=== PATIENT | male | born 1965 | race Caucasian/White ===

== ENCOUNTER 2017-02-26 16:30 | Inpatient (IN) | payer MEDICARE, MEDICAID ==
[~2017-02-26] VITALS: Ht 185.4 cm; Wt 89.1 kg
[2017-02-26 16:40] VITALS: O2SAT 100
[2017-02-26] MEDS ORDERED: DIPHTH/TETANUS/ACEL PERTUSSIS (BOOSTER) 0.5 ML VIAL/PFS IM ONE (16:40)
[2017-02-26 17:08] LABS: I-STAT SODIUM 135 MMOL/L (138-146)
[2017-02-26 17:09] LABS: AUTOMATED NEUTROPHIL # 11.3 TH/MM3 (1.8-7.7); BASOPHIL # 0.1 TH/MM3 (0-0.2); BASOPHIL % 0.6 % (0.0-2.0); EOSINOPHIL % 0.1 % (0.0-4.0); HEMATOCRIT 25.3 % (39.0-51.0); HEMO FLAGS DIFF FINAL; LYMPH % 10.1 % (9.0-44.0); LYMPHOCYTE # 1.3 TH/MM3 (1.0-4.8); MEAN CELL VOLUME 62.7 FL (80.0-100.0); MEAN CORPUSCULAR HGB CONC 31.8 % (32.0-36.0); NEUT % 86.2 % (16.0-70.0); PLATELET COUNT 116 TH/MM3 (150-450); RED BLOOD COUNT 4.04 MIL/MM3 (4.50-5.90); RED CELL DISTRIBUTION WIDTH 16.6 % (11.6-17.2); WHITE BLOOD COUNT 13.1 TH/MM3 (4.0-11.0)
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
[2017-02-26] MEDS ORDERED: LIDOCAINE HCL 1% PF 30 ML VIAL ONE (17:16)
[2017-02-26 17:19] LABS: APTT (PATIENT) 26.1 SEC (24.3-30.1); PROTHROMBIN TIME - PATIENT 11.5 SEC (9.8-11.6)
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
[2017-02-26] MEDS ORDERED: IOHEXOL 350 MG/ML 10 ML VIAL (for RAD DIAG) IVCONTRAST ONE (17:25)
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
--- NOTE | 2017-02-26 17:29 | RADRPT ---
EXAM DATE/TIME: 02/26/2017 16:33 [facility] COMPARISON: No previous studies available for comparison. INDICATIONS : Trauma alert, fall. MEDICAL HISTORY : None. SURGICAL HISTORY : None. ENCOUNTER: Initial ACUITY: 1 day PAIN SCORE: 0/10 LOCATION: Bilateral chest FINDINGS: A single view of the chest demonstrates the lungs to be symmetrically aerated without evidence of mas s, infiltrate or effusion. The cardiomediastinal contours are unremarkable. Osseous structures are intact. CONCLUSION: No acute disease. Mani Starkey MD on February 26, 2017 at 17:27 Board Certified Radiologist. This report was verified electronically.
--- NOTE | 2017-02-26 17:30 | RADRPT ---
EXAM DATE/TIME: 02/26/2017 16:33 [facility] COMPARISON: No previous studies available for comparison. INDICATIONS : Trauma alert, fall. MEDICAL HISTORY : None. SURGICAL HISTORY : None. ENCOUNTER: Initial ACUITY: 1 day PAIN SCORE: 0/10 LOCATION: Bilateral pelvis FINDINGS: A single frontal view of the pelvis demonstrates no evidence of fracture. The bony pelvic ring is in tact. Bony mineralization is normal. The soft tissues are intact. CONCLUSION: Unremarkable examination of the pelvis. Mani Starkey MD on February 26, 2017 at 17:27 Board Certified Radiologist. This report was verified electronically.
[2017-02-26 17:33] LABS: ALCOHOL 222 MG/DL (0-5)
--- NOTE | 2017-02-26 17:33 | RADRPT ---
EXAM DATE/TIME: 02/26/2017 16:49 [facility] COMPARISON: No previous studies available for comparison. INDICATIONS : TRauma, patient fell. RADIATION DOSE: 29.80 CTDIvol (mGy) MEDICAL HISTORY : Non-responsive. SURGICAL HISTORY : Non-responsive. ENCOUNTER: Initial ACUITY: 1 day PAIN SCALE: Non-responsive LOCATION: neck TECHNIQUE: Volumetric scanning of the cervical spine was performed. Multiplanar reconstructions in the sagittal, coronal and oblique axial planes were performed. Using automated exposure control and adjustment o f the mA and/or kV according to patient size, radiation dose was kept as low as reasonably achievable to obtain optimal diagnostic quality images. DICOM format image data is available electronically f or review and comparison. FINDINGS: No acute fracture or spondylolisthesis. There is partial fusion across C4-5 and C6-7. No prevertebral soft tissue swelling. No significant bony canal stenosis. Incidental note made of a 1.5 cm right lob e thyroid nodule. CONCLUSION: 1. No acute fracture. Partial fusion across C4-5 and C6-7. 2. 1.5 cm right thyroid nodule. Mani Starkey MD on February 26, 2017 at 17:28 Board Certified Radiologist. This report was verified electronically.
[2017-02-26 17:34] LABS: CREATINE KINASE 278 U/L (39-308)
--- NOTE | 2017-02-26 17:38 | RADRPT ---
EXAM DATE/TIME: 02/26/2017 16:55 [facility] COMPARISON: No previous studies available for comparison. INDICATIONS : Trauma, patient fell. IV CONTRAST: 70 cc Omnipaque 350 (iohexol) IV ; Cumulative dose for multiple exams. ORAL CONTRAST: No oral contrast ingested. RADIATION DOSE: 12.15 CTDIvol (mGy) ; Combined studies - Thorax/Abdomen/Pelvis MEDICAL HISTORY : Non-responsive. SURGICAL HISTORY : Non-responsive. ENCOUNTER: Initial ACUITY: 1 day PAIN SCALE: Non-responsive LOCATION: abdomen TECHNIQUE: Volumetric scanning of the abdomen and pelvis was performed. Using automated exposure control and ad justment of the mA and/or kV according to patient size, radiation dose was kept as low as reasonably achievable to obtain optimal diagnostic quality images. DICOM format image data is available electro nically for review and comparison. FINDINGS: The liver is diffusely fatty and there is a 2.5 cm enhancing nodule in the right lobe. Spleen, adrena ls, kidneys and pancreas demonstrate no acute findings. There is some mural thickening in the right colon in a pattern suggestive of a mild colitis. Surgical clips present in the right lower quadrant. Wide mouth ventral hernia with evidence for previous repa ir. No pelvic masses or hematoma. Right femoral venous line present with some air in the right external i liac vein. CONCLUSION: 1. 2.5 cm nodule in right hepatic lobe. This could be evaluated with MRI on a nonemergent basis. Ther e is likely prior cross-sectional imaging given the postsurgical changes within the abdomen. 2. Negative for acute traumatic injury within the abdomen and pelvis. 3. Mural thickening in the right colon most characteristic of a mild colitis. 4. Right femoral venous line present with some air in the right external iliac vein. Mani Starkey MD on February 26, 2017 at 17:32 Board Certified Radiologist. This report was verified electronically.
[2017-02-26] MEDS: SODIUM CHLOR 0.9% 1000 ML INJ 1,000 ML IV SCH (17:58)
[2017-02-26] MEDS ORDERED: BISACODYL 10 MG SUPP RECTAL PRN (18:00)
[2017-02-26] MEDS ORDERED: POTASSIUM PHOSPHATE INJ 30 MMOL in SODIUM CHLOR 0.9% 250 ML INJ 250 ML IV PRN (18:00)
[2017-02-26] MEDS ORDERED: LACTULOSE SYRUP 20 GM/30 ML CUP PO PRN (18:00)
[2017-02-26] MEDS ORDERED: SODIUM PHOSPHATE INJ 30 MMOL in SODIUM CHLOR 0.9% 250 ML INJ 240 ML IV PRN (18:00)
[2017-02-26] MEDS ORDERED: MAGNESIUM SULFATE INJ 2 GM in SODIUM CHLORIDE 0.9% INJ 96 ML IV PRN (18:00)
[2017-02-26] MEDS ORDERED: CHLORHEXIDINE GLUCONATE 2 % 1 PACK (2 CLOTHS) TOP PRN (18:00)
[2017-02-26] MEDS ORDERED: POTASSIUM CHLORIDE 25 MEQ EFFERVESCENT TAB PO PRN (18:00)
[2017-02-26] MEDS ORDERED: MAGNESIUM OXIDE 400 MG TAB PO PRN (18:00)
[2017-02-26] MEDS ORDERED: MAGNESIUM SULFATE INJ 4 GM in SODIUM CHLORIDE 0.9% INJ 92 ML IV PRN (18:00)
[2017-02-26] MEDS ORDERED: MISCELLANEOUS NURSING INFORMATION XX SCH (18:00)
[2017-02-26] MEDS ORDERED: POTASSIUM CHLOR 40 MEQ PREMIX 100 ML IV PRN ×2 (18:00)
[2017-02-26] MEDS ORDERED: POTASSIUM CHLOR 20 MEQ PREMIX 100 ML IV PRN (18:00)
[2017-02-26] MEDS ORDERED: POTASSIUM PHOSPHATE MONOBASIC 500 MG TAB PO/TUBE PRN (18:00)
[2017-02-26] MEDS ORDERED: POTASSIUM PHOSPHATE MONOBASIC 500 MG TAB PO PRN (18:00)
--- NOTE | 2017-02-26 18:41 | PD.PROCEDR ---
Central Line Procedure REASON FOR PROCEDURE Central venous access PROCEDURE PERFORMED Central line placement: [right femoral vein] CONSENT Emergency ANESTHESIA Local injection of 1% Lidocaine DESCRIPTION OF THE PROCEDURE The patient was placed in supine, position. The right inguinal area was exposed and cleansed with ChloraPrep, times two. Large sterile drape was used to cover the patient, with the site exposed, under sterile conditions including cap, face mask, sterile gown, and sterile gloves. On single attempt, the introducer needle was inserted with negative pressure in syringe and venous flash was obtained. The guide wire was then advanced without any restriction and the needle was removed. The dilator was used without any complications. Using Seldinger technique the [a cordis ] catheter was advanced over the guide wire to a depth of [ ] centimeters. The guide wire was removed. All ports were aspirated with dark venous blood return and flushed easily with sterile saline. All ports were capped. Antibiotic disc was placed around central line at puncture site. The central line was secured to the skin with two interrupted 2.0 silk sutures. The area was bandaged with sterile see-through central line bandage. RADIOLOGICAL DATA COMPLICATIONS: No apparent complications ESTIMATED BLOOD LOSS: Less than 1 cc. Elise Pollard MD Feb 26, 2017 18:41
--- NOTE | 2017-02-26 18:44 | PD.OP ---
Operative Report Open wound left forehead 5x2cm Postoperative Diagnosis: open wound left forehead 5x2cm Procedure: Closure in layers Anesthesia: 1 %idocaine Surgeon: Elise Pollard [employer](s): none Operation and Findings: Patient's left forehead was sterilely prepped and draped using the usual technique. 1% of lidocaine was given as local anesthesia. Bleeding was controlled with some pressure. Wound was closed in subcutaneous layer with 3-0 Vicryl skin approximated with 4 nylon. Elise Pollard MD Feb 26, 2017 18:44
--- NOTE | 2017-02-26 18:46 | HHI.HP ---
History of Present Illness Primary Care Physician Unknown Admission Diagnosis scalp laceration, anemia Diagnoses: History of Present Illness 51-year-old male on elliquis -patient apparently fell yesterday sustaining a open wound left forehead which has been bleeding today he fell again. According to the EMS that was large amount of blood all over patient's house. IV access could not be obtained blood pressure has been marginal. Patient was brought here as a level I trauma alert. On arrival GCS is 15, initial blood pressure in the 90s, patient is intoxicated with EtOH appears dehydrated- central access was immediately obtained and patient responded well to crystalloid and blood transfusions. Fast performed by ER physician was negative so the patient was brought to CAT scan,neuro intact. He complains of back pain, abdominal pain Review of Systems Constitutional: DENIES: Diaphoretic episodes, Fatigue, Fever, Weight gain, Weight loss, Chills, Dizziness, Change in appetite, Night Sweats Endocrine: DENIES: Heat/cold intolerance, Polydipsia, Polyuria, Polyphagia Eyes: DENIES: Blurred vision, Diplopia, Eye inflammation, Eye pain, Vision loss , Photosensitivity, Double Vision Ears, nose, mouth, throat: DENIES: Tinnitus, Hearing loss, Vertigo, Nasal discharge, Oral lesions, Throat pain, Hoarseness, Ear Pain, Running Nose, Epistaxis, Sinus Pain, Toothache, Odynophagia Respiratory: DENIES: Apneas, Cough, Snoring, Wheezing, Hemoptysis, Sputum production, Shortness of breath Gastrointestinal: COMPLAINS OF: Abdominal pain Genitourinary: DENIES: Sexual dysfunction, Urinary frequency, Urinary incontinence, Urgency, Hematuria, Dysuria, Nocturia, Penile Discharge, Testicular Pain, Testicular Swelling Musculoskeletal: DENIES: Joint pain, Muscle aches, Stiffness, Joint Swelling, Back pain, Neck pain Immunologic/allergic: DENIES: Eczema, Urticaria Neurologic: DENIES: Abnormal gait, Headache, Localized weakness, Paresthesias, Seizures, Speech Problems, Tremor, Poor Balance Psychiatric: DENIES: Anxiety, Confusion, Mood changes, Depression, Hallucinations, Agitation, Suicidal Ideation, Homicidal Ideation, Delusions Past Family Social History Allergies: Coded Allergies: morphine (Verified Allergy, Unknown, 02/26/17) Past Medical History DVT Past Surgical History Multiple abdominal surgeries Reported Medications [facility]m hospital[facility] Family History none Social History etoh+ Physical Exam Vital Signs Vital Signs Date Time Temp Pulse Resp B/P (MAP) Pulse Ox O2 Delivery O2 Flow Rate FiO2 02/26/17 16:40 100 Non-Rebreather 15.00 100 02/26/17 16:40 100 15.00 100 Physical Exam GENERAL: This is a well-nourished, well-developed patient, in moderate distress. SKIN: No rashes, ecchymoses or lesions. Cool and dry. HEAD: open wound 2x5 cm left forehead EYES: Pupils equal round and reactive. orbital swelling left ENT: Nose swelling Airway patent. NECK: Trachea midline. midline tenderness CARDIOVASCULAR: Regular rate and rhythm without murmurs, gallops, or rubs. RESPIRATORY: Clear to auscultation. Breath sounds equal bilaterally. No wheezes , rales, or rhonchi. GASTROINTESTINAL: Abdomen soft, tender no peritonitis,large hernia MUSCULOSKELETAL: Extremities without clubbing, cyanosis, or edema. No joint tenderness, effusion, or edema noted. No calf tenderness. NEUROLOGICAL: Awake and alert. Cranial nerves II through XII intact. Motor and sensory grossly within normal limits. Five out of 5 muscle strength in all muscle groups. Normal speech. Laboratory Laboratory Tests Test 02/26/17 16:45 White Blood Count 13.1 Red Blood Count 4.04 Hemoglobin 8.1 Bedside Hemoglobin 9.5 Hematocrit 25.3 Bedside Hematocrit 28.0 Mean Corpuscular Volume 62.7 Mean Corpuscular Hemoglobin 20.0 Mean Corpuscular Hemoglobin Concent 31.8 Red Cell Distribution Width 16.6 Platelet Count 116 Mean Platelet Volume 7.5 Neutrophils (%) (Auto) 86.2 Lymphocytes (%) (Auto) 10.1 Monocytes (%) (Auto) 3.0 Eosinophils (%) (Auto) 0.1 Basophils (%) (Auto) 0.6 Neutrophils # (Auto) 11.3 Lymphocytes # (Auto) 1.3 Monocytes # (Auto) 0.4 Eosinophils # (Auto) 0.0 Basophils # (Auto) 0.1 CBC Comment DIFF FINAL Differential Comment Prothrombin Time 11.5 Prothromb Time International Ratio 1.0 Activated Partial Thromboplast Time 26.1 Bedside Sodium 135 Bedside Potassium 3.0 Bedside Chloride 97 Bedside Blood Urea Nitrogen LESS THAN 3 Bedside Creatinine 1.1 Bedside Glucose 137 Total Creatine Kinase 278 Ethyl Alcohol Level 222 Result Diagram: 02/26/17 6545 Caprini VTE Risk Assessment Caprini VTE Risk Assessment: Mod/High Risk (score >= 2) VTE Pharm Contraindication: Coagulopathy,INR elevated Caprini Risk Assessment Model Point Value = 1 Point Value = 2 Point Value = 3 Point Value = 5 Age 41-60 Minor surgery BMI > 25 kg/m2 Swollen legs Varicose veins or History of unexplained or recurrent spontaneous Oral contraceptives or hormone replacement Sepsis (< 1 month) Serious lung disease, including pneumonia (< 1 month) Abnormal pulmonary function Acute myocardial infarction Congestive heart failure (< 1 month) History of inflammatory bowel disease Medical patient at bed rest Age 61-74 Arthroscopic surgery Major open surgery (> 45 min) Laparoscopic surgery (> 45 min) Malignancy Confined to bed (> 72 hours) Immobilizing plaster cast Central venous access Age >= 75 History of VTE Family history of VTE Factor V Leiden Prothrombin [id number] Lupus anticoagulant Anticardiolipin antibodies Elevated serum homocysteine Heparin-induced thrombocytopenia Other congenital or acquired thrombophilia Stroke (< 1 month) Elective arthroplasty Hip, pelvis, or leg fracture Acute spinal cord injury (< 1 month) Prophylaxis Regimen Total Risk Factor Score Risk Level Prophylaxis Regimen 0-1 Low Early ambulation 2 Moderate Order ONE of the following: *Sequential Compression Device (SCD) *Heparin 5000 units SQ BID 3-4 Higher Order ONE of the following medications: *Heparin 5000 units SQ TID *Enoxaparin/Lovenox 40 mg SQ daily (WT < 150 kg, CrCl > 30 mL/min) *Enoxaparin/Lovenox 30 mg SQ daily (WT < 150 kg, CrCl > 10-29 mL/min) *Enoxaparin/Lovenox 30 mg SQ BID (WT < 150 kg, CrCl > 30 mL/min) AND/OR *Sequential Compression Device (SCD) 5 or more Highest Order ONE of the following medications: *Heparin 5000 units SQ TID (Preferred with Epidurals) *Enoxaparin/Lovenox 40 mg SQ daily (WT < 150 kg, CrCl > 30 mL/min) *Enoxaparin/Lovenox 30 mg SQ daily (WT < 150 kg, CrCl > 10-29 mL/min) *Enoxaparin/Lovenox 30 mg SQ BID (WT < 150 kg, CrCl > 30 mL/min) AND *Sequential Compression Device (SCD) Assessment and Plan Assessment and Plan Hemorrhagic shock on anticoagulated patient Hypotension Neck sprain Open wound left forehead 2 units of RBC 1 L of crystalloid for hemorrhagic shock ICU admission cbc follow immobilize neck-reexamine in AM Hold elliqumary pain control Elise Pollard MD Feb 26, 2017 18:46
[2017-02-26] MEDS: DOCUSATE SODIUM 50 MG/SENNA 8.6 MG TAB PO SCH (19:58)
[2017-02-26 20:00] VITALS: BP 138/71; PULSE 89; RESP 26; TEMP 98.8; O2SAT 95
[2017-02-26] MEDS: ONDANSETRON HCL 4 MG/2 ML VIAL IV PUSH PRN (20:02)
[2017-02-26] MEDS: HYDROmorphone HCL PF 1 MG/ML VIAL IV PUSH PRN ×2 (20:02→22:53)
[2017-02-26] MEDS: levETIRAcetam 500 MG TAB PO SCH (20:03)
[2017-02-26] MEDS: POTASSIUM CHLOR 20 MEQ PREMIX 100 ML IV PRN ×2 (20:13→22:40)
[2017-02-26] MEDS ORDERED: MAGNESIUM HYDROXIDE SUSP 30 ML CUP PO PRN (21:00)
[2017-02-26] MEDS ORDERED: SENNOSIDES 8.6 MG TAB PO PRN (21:00)
[2017-02-26] MEDS: CHLORHEXIDINE GLUCONATE 2 % 1 PACK (2 CLOTHS) TOP SCH (21:16)
--- NOTE | 2017-02-26 21:29 | EKG ---
Date Performed: 02/26/2017 Time Performed: 20:51:39 PTAGE: 89 years EKG: SINUS TACHYCARDIA NONSPECIFIC T-WAVE ABNORMALITY ABNORMAL RHYTHM ECG NO PREVIOUS TRACING DOCTOR: Boaz Heard Interpretating Date/Time 02/26/2017 21:28:45
[2017-02-26] MEDS: MULTIVITAMIN INJ 10 ML, THIAMINE INJ 100 MG, FOLIC ACID INJ 1 MG in SODIUM CHLORID 0.9%... IV SCH (21:44)
[2017-02-26 22:00] VITALS: PULSE 114
[2017-02-26] MEDS ORDERED: FLUMAZENIL 0.5 MG/5 ML VIAL IV PUSH PRN (22:30)
[2017-02-26] MEDS ORDERED: LORazepam 1 MG TAB PO PRN (22:30)
[2017-02-26] MEDS ORDERED: LORazepam 2 MG/ML VIAL IV PUSH PRN ×3 (22:30)
[2017-02-26] MEDS: LORazepam 2 MG TAB PO PRN (22:53)
[2017-02-26 23:00] VITALS: PULSE 114
[2017-02-27] VITALS (15 sets, daily range): BP systolic 122–140; BP diastolic 63–73; PULSE 100–129; RESP 15–27; TEMP 98–98.8; O2SAT 94–99
[2017-02-27] MEDS: POTASSIUM CHLOR 20 MEQ PREMIX 100 ML IV PRN ×2 (00:39→03:00)
[2017-02-27] MEDS: LORazepam 2 MG TAB PO PRN (01:44)
[2017-02-27] MEDS: HYDROmorphone HCL PF 1 MG/ML VIAL IV PUSH PRN ×2 (01:45→04:54)
[2017-02-27] MEDS: SODIUM CHLOR 0.9% 1000 ML INJ 1,000 ML IV SCH ×2 (02:12→17:48)
[2017-02-27] MEDS: LORazepam 2 MG/ML VIAL IV PUSH PRN ×2 (03:51→04:53)
[2017-02-27 05:43] LABS: BICARBONATE 23.9 MEQ/L (21.0-32.0)
[2017-02-27 06:05] LABS: CALCIUM-PROTEIN CORRECTED 8.1 MG/DL (8.5-10.1)
[2017-02-27 06:10] LABS: AUTOMATED NEUTROPHIL # 8.3 TH/MM3 (1.8-7.7); BASOPHIL % 0.5 % (0.0-2.0); EOSINOPHIL % 0.1 % (0.0-4.0); HEMATOCRIT 24.6 % (39.0-51.0); LYMPH % 10.6 % (9.0-44.0); MEAN CORPUSCULAR HEMOGLOBIN 23.3 PG (27.0-34.0); MEAN CORPUSCULAR HGB CONC 34.2 % (32.0-36.0); MONO % 4.3 % (0.0-8.0); NEUT % 84.5 % (16.0-70.0); PLATELET COUNT 61 TH/MM3 (150-450); RED BLOOD COUNT 3.61 MIL/MM3 (4.50-5.90); RED CELL DISTRIBUTION WIDTH 22.2 % (11.6-17.2); WHITE BLOOD COUNT 9.9 TH/MM3 (4.0-11.0)
[2017-02-27 06:19] LABS: HEMO FLAGS AUTO DIFF
[2017-02-27 08:01] LABS: CORRECTED NUCLEATED RBC 4 /100 WBC (0-0); NEUTROPHIL # MANUAL DIFF 8.6 TH/MM3 (1.8-7.7); PLATELET ESTIMATE SMEAR LOW (NORMAL); PLATELET MORPHOLOGY NORMAL (NORMAL); POLYS (SEG NEUTROPHILS) 87 % (16-70); SCAN/DIFF FINAL DIFF MANUAL; WBC DIFF SAMPLE 100
[2017-02-27] MEDS: MULTIVITAMIN INJ 10 ML, THIAMINE INJ 100 MG, FOLIC ACID INJ 1 MG in SODIUM CHLORID 0.9%... IV SCH (08:27)
[2017-02-27] MEDS: levETIRAcetam 500 MG TAB PO SCH ×2 (08:28→20:44)
[2017-02-27] MEDS: DOCUSATE SODIUM 50 MG/SENNA 8.6 MG TAB PO SCH ×2 (08:28→20:44)
[2017-02-27] MEDS: ACETAMINOPHEN/HYDROcodone 325 MG/10 MG TAB PO PRN ×4 (08:28→21:55)
[2017-02-27] MEDS ORDERED: INFLUENZA VIRUS VACCINE (QUADRIVALENT) 0.5 ML SYR IM ONE (10:00)
[2017-02-27] MEDS ORDERED: PNEUMOCOCCAL POLYVALENT INJ 25 MCG/0.5 ML SYR IM ONE (10:00)
[2017-02-27] MEDS: HYDROmorphone HCL PF 0.5 MG/0.5 ML SYRINGE IV PUSH PRN ×3 (10:53→23:39)
--- NOTE | 2017-02-27 12:13 | PD.HHIRBSE ---
Patient History Record/History Review Reason for Referral: The patient is a 51 year old right handed male status post traumatic injury secondary to a fall and complicated by blood thinning medications and chronic ETOH abuse on 02/27/2017. On admission, he was GCS of 15 with ETOH intoxication. This patient reported consuming 6+ 24 oz cans of beer per day, with longstanding ETOH dependence, reported in and out of sobriety programs. He reported a history of seizure disorder related to his longstanding chronic alcohol dependence (on Keppra and Lamictal) . He is on SSDI for multiple physical issues, , prior arrest for public intoxication vs. stalking. He is referred for baseline neurobehavioral status examination per trauma protocol to assess cognitive, behavioral and emotional aspects of the injury and to provide treatment recommendations. Neuropsych Precautions: Neuropsychological deficits associated with alcohol dependence. Past Surgical/Medical History Past Surgery: Yes (Left foot, right knee, abdominal sx) Major surgery in last 100 days: Unknown Hx Anesthesia Reactions: No Hx Orthopedic Surgery: Yes (right knee (2013), left foot (2013)) Hx Cardiac Surgery: No Hx Chest Surgery: No Hx Abdominal Surgery: Yes (Abdominal surgery 2014) Hx Genitourinary Surgery: No Hx Endocrine Surgery: No Hx Eye Surgery: No Hx Ear Surgery: No Hx Oral Surgery: No History of Transplant: No Hx of Neuro Prob: Yes Hx Seizures: Yes Cephalgia (Headaches): Yes Hx Migraines: Yes Hx Head Injury: Yes Hx Falls: Yes Hx Cerebrovascular Accident: No Hx Dizziness: No Hx Numbness: No Hx of Musculoskeletal Pro: No Hx of Cardiovascular Prob: Yes Hypertension (High Blood Press: No Hx Clotting Problems: Yes Venous Thromboembolism Present: No Hx Chest Pain: No Hx Lightheadedness: No Hx Congestive Heart Failure: No Syncope (Fainting): No Hx of Respiratory Problem: No Hx of GI Problems: Yes (Chron's disease) Hx Heartburn: Yes Hx Gastroesophageal Reflux: Yes Hx Hiatal Hernia: Yes Hx Ulcer: No Hx Liver Disease: Yes (Fatty liver) Hx Gallbladder Disease: Yes (Choleycystectomy) Hx Inflammatory Bowel Disease: Yes (Chron's) Hx of Problems: No Hx Genital Problems: Yes (erctile dysfunction) Hx of Immuno Disor: No Hx of Endocrine Problems: No Hx of Eye Probl: No Hx of Hearing or Ear Problems: No Hx Dental Problems: No Hx Psychiatric Problems: Yes Hx Anxiety: Yes Hx Blood Dyscrasias: No Hx of MDRO: No Hx of MRSA: No Hx of VRE: No Hx of CDIFF: No Hx of Tuberculosis: No Hx Chicken Pox: Yes (at 18 y/o) If No, Have You Been Exposed W: No Hx Measles: No Hx of Body/Medical Devices: No Blood Transfusion History Will receive Blood /Blood prod: Yes Hx Blood Transfusions: Yes Hx Blood Transfusion Reaction: No Medication Active Medications Acetaminophen/ Hydrocodone Bitart ([place] 5-325 Mg) 1 tab Q4H PRN PO; Start at 07:45 Acetaminophen/ Hydrocodone Bitart ([place] 10-325 Mg) 1 tab Q4H PRN PO Last administered on 02/27/17t 08:28; Admin Dose 1 TAB; Start 02/27/17 at 07:45 Bisacodyl (Dulcolax Supp) 10 mg DAILY PRN RECTAL; Start 02/26/17 at 18:00 Chlorhexidine Gluconate (Chlorhexidine 2% Cloth) 3 pack UNSCH PRN TOP; Start 02/26/17 at 18:00 Chlorhexidine Gluconate (Chlorhexidine 2% Cloth) 3 pack Taper DAILY@04 TOP; Start 02/27/17 at 04:00; Stop 02/23/18 at 03:59 Diphtheria/ Tetanus/Acell Pertussis (Boostrix Inj) 0.5 ml STK-MED ONCE IM; Start 02/26/17 at 16:40; Stop 02/26/17 at 16:41; Status DC Fentanyl Citrate (fentaNYL INJ) 100 mcg STK-MED ONCE .ROUTE; Start 02/26/17 at 16:45; Stop 02/26/17 at 16:46; Status DC Fentanyl Citrate (fentaNYL INJ) 100 mcg STK-MED ONCE .ROUTE; Start 02/26/17 at 16:51; Stop 02/26/17 at 16:52; Status DC Fentanyl Citrate (fentaNYL INJ) 100 mcg STK-MED ONCE .ROUTE; Start 02/26/17 at 17:34; Stop 02/26/17 at 17:35; Status DC Fentanyl Citrate (fentaNYL INJ) 100 mcg STK-MED ONCE .ROUTE; Start 02/26/17 at 18:01; Stop 02/26/17 at 18:02; Status DC Flumazenil (Romazicon Inj) 0.2 mg Q1M PRN IV PUSH; Start 02/26/17 at 22:30 Haloperidol Lactate (Haldol Inj) 5 mg Q6HR IV PUSH; Start 02/27/17 at 12:00 Hydromorphone HCl (Dilaudid Pf Inj) 0.5 mg Q3HR PRN IV PUSH Last administered on 02/27/17 10:53; Admin Dose 0.5 MG; Start 02/26/17 at 18:00 Hydromorphone HCl (Dilaudid Pf Inj) 1 mg Q3HR PRN IV PUSH Last administered on 02/27/17 04:54; Admin Dose 1 MG; Start 02/26/17 at 18:00; Stop 02/27/17 at 07:38; Status DC Influenza Virus Vaccine (Flu (Quadrivalent) Vaccine Inj) 0.5 ml ONCE ONCE IM Last administered on 02/27/17 10:52; Admin Dose 0.5 ML; Start 02/27/17 at 10: 00; Stop 02/27/17 at 10:01; Status DC Iohexol (Omnipaque 350 Inj) 70 ml STK-MED ONCE IVCONTRAST Last administered on 02/26/17 17:25; Admin Dose 70 ML; Start 02/26/17 at 17:25; Stop 02/26/17 at 17:26; Status DC Lactulose (Lactulose Liq) 30 ml DAILY PRN PO; Start 02/26/17 at 18:00 Levetriacetam (Keppra) 1,000 mg Q12HR PO Last administered on 02/27/17 08:28; Admin Dose 1,000 MG; Start 02/26/17 at 21:00 Lidocaine HCl (Xylocaine-Mpf 1% Inj) 30 ml STK-MED ONCE .ROUTE; Start 02/26/17 at 17:16; Stop 02/26/17 at 17:17; Status DC Lorazepam (Ativan Inj) 1 mg Q4H PRN IV PUSH; Start 02/26/17 at 22:30; Stop at 07:34; Status DC Lorazepam (Ativan Inj) 2 mg Q15M PRN IV PUSH; Start 02/26/17 at 22:30; Stop 02/27/17 at 07:34; Status DC Lorazepam (Ativan Inj) 2 mg Q1H PRN IV PUSH Last administered on 02/27/17 04: 53; Admin Dose 2 MG; Start 02/26/17 at 22:30; Stop 02/27/17 at 07:34; Status DC Lorazepam (Ativan Inj) 2 mg Q2H PRN IV PUSH; Start 02/26/17 at 22:30; Stop at 07:34; Status DC Lorazepam (Ativan) 1 mg Q4H PRN PO; Start 02/26/17 at 22:30; Stop 02/27/17 at 07:34; Status DC Lorazepam (Ativan) 2 mg Q2H PRN PO Last administered on 02/27/17 01:44; Admin Dose 2 MG; Start 02/26/17 at 22:30; Stop 02/27/17 at 07:34; Status DC Magnesium Hydroxide (Milk Of Magnesia Liq) 30 ml Q12HR PRN PO; Start 02/26/17 at 21:00 Magnesium Oxide (Mag-Ox) 800 mg UNSCH PRN PO; Start 02/26/17 at 18:00 Magnesium Sulfate 2 gm/Sodium Chloride 100 ml @ 50 mls/hr UNSCH PRN IV; Start 02/26/17 at 18:00 Magnesium Sulfate 4 gm/Sodium Chloride 100 ml @ 50 mls/hr UNSCH PRN IV; Start 02/26/17 at 18:00 Miscellaneous Information 1 [id number] XX; Start 02/26/17 at 18:00 Multivitamins 10 ml/Thiamine HCl 100 mg/Folic Acid 1 mg/Sodium Chloride 511.2 ml @ 125 mls/hr DAILY IV Last administered on 02/27/17 08:27; Admin Dose 125 MLS/HR; Start 02/26/17 at 20:00; Stop 02/28/17 at 13:06 Ondansetron HCl (Zofran Inj) 4 mg Q6H PRN IV PUSH Last administered on 20:02; Admin Dose 4 MG; Start 02/26/17 at 18:00 Pneumococcal Polyvalent Vaccine (Pneumovax-23 Inj) 25 mcg ONCE ONCE IM Last administered on 02/27/17 10:51; Admin Dose 25 MCG; Start 02/27/17 at 10:00; Stop 02/27/17 at 10:01; Status DC Potassium Phosphate (K-Phos) 2,000 mg Q4H PRN PO; Start 02/26/17 at 18:00 Potassium Phosphate (K-Phos) 2,000 mg UNSCH PRN PO/TUBE; Start 02/26/17 at 18: 00 Potassium Phosphate 30 mmol/ Sodium Chloride 260 ml @ 42 mls/hr UNSCH PRN IV; Start 02/26/17 at 18:00 Potassium Bicarb/ Potassium Chloride (K-Lyte Cl Eff) 50 meq UNSCH PRN PO; Start 02/26/17 at 18:00 Potassium Chloride 100 ml @ 25 mls/hr UNSCH PRN IV; Start 02/26/17 at 18:00 Potassium Chloride 100 ml @ 50 mls/hr Q2H PRN IV Last administered on 03:00; Admin Dose 50 MLS/HR; Start 02/26/17 at 18:00 Potassium Chloride 100 ml @ 50 mls/hr Q2H PRN IV; Start 02/26/17 at 18:00 Potassium Chloride 100 ml @ 50 mls/hr Q2H PRN IV; Start 02/26/17 at 18:00 Quetiapine Fumarate (SEROquel) 100 mg Q8HR PO; Start 02/27/17 at 14:00 Senna/Docusate Sodium ([place]-Colace) 1 tab BID PO Last administered on 08:28; Admin Dose 1 TAB; Start 02/26/17 at 21:00 Sennosides (Senokot) 17.2 mg Q12HR PRN PO; Start 02/26/17 at 21:00 Sodium Chloride 1,000 ml @ 84 mls/hr [id number] IV Last administered on 02:12; Admin Dose 84 MLS/HR; Start 02/26/17 at 17:58 Sodium Phosphate 30 mmol/Sodium Chloride 250 ml @ 42 mls/hr UNSCH PRN IV; Start 02/26/17 at 18:00 Mental Status Assessment Orientation: oriented to Self, oriented to Place, oriented to Time, oriented to Situation Mental Status: WFL: Language/Interactions, Learning/Memory, Problem-Solving, Impaired: Thought processing, Attention Observation The patient is alert and oriented to person, place, time and circumstances surrounding the reason for hospitalization. In terms of attention skills, the patient was able to remain on task and remember basic instructions, but he had problems with complex instructions. In terms of memory functioning, the patient was generally able to demonstrate adequate carry over after a brief period of time. The patient initiated spontaneous conversation. Speech was characterized by adequate prosody, grammar, articulation, volume and rate. Basic naming skills were intact. Language repetition skills were intact. The patients comprehensions for basic one- and two-stage commands were intact. Basic verbal abstraction and problem-solving skills were marginal. The patient appears to posses diminished insight and awareness into their situation and within the limits of this brief evaluation, questionable yet longstanding problems with judgment. Impression Alcohol intoxication affecting baseline neurobehavioral assessment. Adjustment/Coping Assessment Adjustment/Coping: Moderate: Awareness, Insight Observation The patients thought content was free from suicidal, homicidal or paranoid ideation, and the patients thought processes were somewhat tangential. The patients mood was anxious, and the affect was worrisome. LTG Status: Deferred STG Status: Deferred Team Members: Neuropsychologist Behavior Assessment Agitation: Mild Treatment Engagement: Average Observation Behaviorally, the patient demonstrated no signs of agitation, impulsivity or disinhibition. He was agitated/restless earlier, but not at the present time. There was no remarkable evidence of a formal thought disorder or psychosis. LTG - Status: Deferred STG Status: Deferred Team Members: Neuropsychologist Diagnosis/Discharge Plan Impression This is a 51 year old man with longstanding history of alcohol dependence and current alcohol intoxication who presents to the [facility] with multiple fall exacerbated by blood thinning medications, who has been agitated/restless since his admission. 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 Diagnosis: (1) Alcohol dependence in controlled environment (2) Alcohol intoxication (3) Dependent personality disorder Status: Chronic Maximizing acute care outcome It is recommended that the patient be monitored for emergent behavioral impulsivity as the medical condition evolves. His ongoing alcohol dependence will be a challenge and will need pharmacological management. At this point in the recovery process, the patient does have basic cognitive capacity as the patient is able to understand a situation and its likely consequences, and he is able to manipulate information rationally albeit marginally rationally. Cognitive capacity will be assessed throughout the recovery process. Discharge Planning Anticipated Problems The greatest anticipated problem will be his ongoing alcohol dependence and his dependent personality disorder making it difficult to determine an accurate history. Ongoing areas of concern will include behavioral impulsivity, lack of insight and judgment, which is expected to improve with time and treatment. Presently, the patient is alert, oriented and following commands, although his cognition is presently attenuated by resolving alcohol intoxication. Treatment Plan Concerning his agitation/restlessness and resolving alcohol intoxication, it is suggested to consider Seroquel 100 q8h and Haldol PRN, with decision to mollify withdrawal symptoms with beer tid. This clinician will continue to follow with you throughout the course of this patients acute care treatment, and I will be available to meet with the patients family/support system to facilitate their understanding and the ongoing care of their family member. The goals of neuropsychological intervention shall be both educational and supportive to the family/support system as is deemed clinically appropriate. Discharge Needs To be determined. Thank you Thank you for the opportunity to assist in this patients care. Jose Luis Jane, Ph.D., ABPP Board Certified in Clinical Neuropsychology [place] [employer] [place] Licensed Psychologist #[id number] Jose Luis Jane PhD Feb 27, 2017 12:13
[2017-02-27] MEDS: HALOPERIDOL LACTATE 5 MG/ML AMP IV PUSH SCH ×3 (12:25→23:13)
--- NOTE | 2017-02-27 13:58 | HHI.CCPN ---
Subjective Brief History 51-year-old male fell at home drunk, sustained forehead laceration while on Coumadin for chronic DVT then continue drinking and taking Coumadin until he fell again day or 2 later Patient brought into our institution dehydrated, hypovolemic with significant blood loss and laceration of the forehead heavily intoxicated Patient had forehead laceration repaired in the anticoagulation attended Is now in the ICU awake alert somewhat disoriented trying to get up and run away 24 Hour Review/Hospital Course 02/27/17 Trauma to the head with large laceration of the forehead which is not bleeding Patient has a nasal bone fracture which at this point does not require any urgent management and patient should follow up with the oral maxillofacial surgeon or a plastic surgeon on outpatient basis Neck is supple patient has not tenderness C-collar can be removed Grossly neurologically patient is fully intact moves all 4 extremities able to stand up Bilateral breath sounds Hemodynamically stable Abdomen is soft with active bowel sounds No active bleeding Objective Vital Signs Date Time Temp Pulse Resp B/P (MAP) Pulse Ox O2 Delivery O2 Flow Rate FiO2 02/27/17 06:00 129 02/27/17 04:00 98.8 27 140/73 (95) 95 02/26/17 19:00 Room Air 95 02/26/17 16:40 15.00 Intake and Output 02/27/17 02/27/17 02/28/17 08:00 16:00 00:00 Intake Total 2880 ml Output Total 2000 ml Balance 880 ml Result Diagram: 02/27/17 0459 02/27/17 0459 Imaging Last 24 hours Impressions Pelvis X-Ray 02/26/[id number] Signed Impressions: Service Date/Time: Sunday, February 26, 2017 16:33 - CONCLUSION: Unremarkable examination of the pelvis. Mani Starkey MD Maxillofacial CT 02/26/[id number] Signed Impressions: Service Date/Time: Sunday, February 26, 2017 16:49 - CONCLUSION: 1. Minimally displaced nasal bone fracture. Left periorbital soft tissue swelling. Globes intact. Mani Starkey MD Head CT [id number]/26/171638 Signed Impressions: Service Date/Time: Sunday, February 26, 2017 16:49 - CONCLUSION: 1. No acute intracranial abnormality. Left frontal scalp hematoma and laceration. Mani Starkey MD Chest X-Ray 02/26/171638 Signed Impressions: Service Date/Time: Sunday, February 26, 2017 16:33 - CONCLUSION: No acute disease. Mani Starkey MD Chest CT 02/26/17 1639 Signed Impressions: Service Date/Time: Sunday, February 26, 2017 16:55 - CONCLUSION: 1. Negative for acute traumatic injury within the thorax. Subacute healing right anterior sixth rib fracture. Mani Starkey MD Cervical Spine CT 02/26/17 1639 Signed Impressions: Service Date/Time: Sunday, February 26, 2017 16:49 - CONCLUSION: 1. No acute fracture. Partial fusion across C4-5 and C6-7. 2. 1.5 cm right thyroid nodule. Mani Starkey MD Abdomen/Pelvis CT 02/26/17 1639 Signed Impressions: Service Date/Time: Sunday, February 26, 2017 16:55 - CONCLUSION: 1. 2.5 cm nodule in right hepatic lobe. This could be evaluated with MRI on a nonemergent basis. There is likely prior cross-sectional imaging given the postsurgical changes within the abdomen. 2. Negative for acute traumatic injury within the abdomen and pelvis. 3. Mural thickening in the right colon most characteristic of a mild colitis. 4. Right femoral venous line present with some air in the right external iliac vein. Mani Starkey MD Exam [employer] Awake alert but disoriented Neurologically patient is fully intact C-collar will be removed Patient will go in delirium tremens imminently and has been placed on some beer and modified EtOH protocol Evaluated by Dr. Jane the neuropsychologist and his expert opinion is greatly appreciated Hemodynamic/Cardiac Hemodynamically stable Pulmonary/Respiratory Bilateral good breath sounds preserved pulmonary function and I do not know if patient might have aspirated but its high likelihood Hemoglobin stable with thrombocytopenia likely due to liver cirrhosis and chronic alcohol abuse Will monitor platelets carefully any the decreased below 20,000 and patient may need platelet transfusion otherwise as long as is not bleeding I would certainly avoid this Abdomen/GI Nutrition Abdomen is soft patient able to take by mouth diet when fully awake Renal/I&O Preserved renal function Assessment and Plan Attestation Critical care time 35 minutes En Rodriguez MD Feb 27, 2017 13:58
[2017-02-27] MEDS: QUEtiapine FUMARATE 100 MG TAB PO SCH ×2 (16:20→21:48)
[2017-02-27] MEDS: ONDANSETRON HCL 4 MG/2 ML VIAL IV PUSH PRN (23:50)
[2017-02-28] VITALS (12 sets, daily range): BP systolic 105–137; BP diastolic 63–79; PULSE 110–140; RESP 13–27; TEMP 98.1–98.8; O2SAT 95–98
[2017-02-28] MEDS: ACETAMINOPHEN/HYDROcodone 325 MG/10 MG TAB PO PRN ×5 (01:53→23:39)
[2017-02-28] MEDS: CHLORHEXIDINE GLUCONATE 2 % 1 PACK (2 CLOTHS) TOP SCH (03:12)
[2017-02-28] MEDS: HYDROmorphone HCL PF 0.5 MG/0.5 ML SYRINGE IV PUSH PRN ×5 (04:02→22:25)
[2017-02-28] MEDS: QUEtiapine FUMARATE 100 MG TAB PO SCH ×3 (05:17→21:28)
[2017-02-28] MEDS: HALOPERIDOL LACTATE 5 MG/ML AMP IV PUSH SCH (05:17)
[2017-02-28] MEDS: SODIUM CHLOR 0.9% 1000 ML INJ 1,000 ML IV SCH ×2 (05:43→17:34)
--- NOTE | 2017-02-28 08:18 | HHI.PR ---
Neuropsych Emotional Emotional: Moderate: Irritable/Angry/Frustrate Behavior Behavior: Moderate: Impulsive/Agitated Cognitive Cognitive: Unable to Asses: Cognitive, Attention/Concentration, Confused/ Orientation, Insight/Awareness, Judgement/Problem-Solving, Memory Psychosocial Psychosocial: Severe: Psychosocial, Family/Other Adjustment, Realistic Expectation, Unable to Asses: Self-Esteem/Confidence Progress Notes/Response to Tx Contents of Sessions: Adjustment Premorbid psychological status Premorbid Cognitive, Emotional and Behavioral Status: Unstable. The patient has high school years of education but on SSDI for some physical reason. The patient has prior psychiatric difficulties, as described above. Substance abuse history is significant and directly contributed to his present situation. Behavioral Reactions of Patient and Family/Support System: Unstable. The patients family is not present. Emotional/Behavioral Status of Patient and Family/Support System: Unstable. Pertinent issues, if appropriate to this patients clinical care, are described in detail above. Maximizing acute care outcome It is recommended that the patient be monitored for emergent behavioral impulsivity as the medical condition evolves. His ongoing alcohol dependence will be a challenge and will need pharmacological management. At this point in the recovery process, the patient does not have basic cognitive capacity as the patient is not able to understand a situation and its likely consequences, and he is not able to manipulate information rationally albeit marginally rationally. Issues concerning capacity have changed given his current neurobehavioral situation. Cognitive capacity will be assessed throughout the recovery process. Anticipated Problems The greatest anticipated problem will be his ongoing alcohol dependence and his dependent personality disorder making it difficult to determine an accurate history. Ongoing areas of concern will include behavioral impulsivity, lack of insight and judgment, which is expected to improve with time and treatment. Presently, the patient is alert, oriented and following commands, although his cognition is presently attenuated by resolving alcohol intoxication. Treatment Plan This clinician will continue to follow with you throughout the course of this patients acute care treatment, and I will be available to meet with the patient s family/support system to facilitate their understanding and the ongoing care of their family member. The goals of neuropsychological intervention shall be both educational and supportive to the family/support system as is deemed clinically appropriate. Disinhibition Score: 14 Aggression Score: 14 Lability Score: 14 Agitated Behavior Total Score: 21 Impression This is a 51 year old man with longstanding history of alcohol dependence and current alcohol intoxication who presents to the [facility] with multiple fall exacerbated by blood thinning medications, who has been agitated/restless since his admission. 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 Diagnosis: (1) Alcohol dependence in controlled environment (2) Alcohol intoxication (3) Dependent personality disorder Status: Chronic Progress Note Narrative Ongoing follow-up of patient seen during daily trauma rounds. This is day 2 post injury. The patient continues to exhibit agitation/restlessness related to his alcohol withdrawal status, and he remains on Seroquel 100 TID and IM PRN Haldol (which he received at 1225, 1731, 2313, and 0517). Consideration to increasing Seroquel to 150 TID will be entertained, which was performed. Also Haldol was d/c'ed due to minimal clinical response, and changed to Geodon 10 PRN. This patient was again counseled to listen to the nurses, and follow their directions, and he agreed to comply. Again, the greatest challenge with this patient during the course of his care will be psychological in nature, which includes his alcohol dependence and withdrawal issues. I will continue to follow. Jose Luis Jane PhD Feb 28, 2017 8:18 am
[2017-02-28] MEDS: MULTIVITAMIN INJ 10 ML, THIAMINE INJ 100 MG, FOLIC ACID INJ 1 MG in SODIUM CHLORID 0.9%... IV SCH (08:29)
[2017-02-28] MEDS: DOCUSATE SODIUM 50 MG/SENNA 8.6 MG TAB PO SCH ×2 (08:58→21:00)
[2017-02-28] MEDS: levETIRAcetam 500 MG TAB PO SCH ×2 (08:58→21:27)
[2017-02-28] MEDS ORDERED: ENOXAPARIN SODIUM 40 MG/0.4 ML SYRINGE SQ SCH (11:00)
[2017-02-28] MEDS ORDERED: PILL SPLITTER OTHER PRN (11:00)
[2017-02-28] MEDS: chlordiazePOXIDE 25 MG CAP PO SCH ×2 (14:17→17:33)
--- NOTE | 2017-02-28 19:27 | HHI.CCPN ---
Subjective Brief History 51-year-old male fell at home drunk, sustained forehead laceration while on Coumadin for chronic DVT then continue drinking and taking Coumadin until he fell again day or 2 later Patient brought into our institution dehydrated, hypovolemic with significant blood loss and laceration of the forehead heavily intoxicated Patient had forehead laceration repaired in the anticoagulation attended Is now in the ICU awake alert somewhat disoriented trying to get up and run away 24 Hour Review/Hospital Course 02/27/17 Trauma to the head with large laceration of the forehead which is not bleeding Patient has a nasal bone fracture which at this point does not require any urgent management and patient should follow up with the oral maxillofacial surgeon or a plastic surgeon on outpatient basis Neck is supple patient has not tenderness C-collar can be removed Grossly neurologically patient is fully intact moves all 4 extremities able to stand up Bilateral breath sounds Hemodynamically stable Abdomen is soft with active bowel sounds No active bleeding 02/28/17 Patient is hemodynamically stable Neurologically intact awake alert and oriented No neurologic deficit Abdomen soft diet well tolerated Patient awaiting bed on the floor for the last 24 hours and does not require ICU care Objective Vital Signs Date Time Temp Pulse Resp B/P (MAP) Pulse Ox O2 Delivery O2 Flow Rate FiO2 02/28/17 16:27 98 02/28/17 16:00 134 02/28/17 16:00 98.2 24 137/79 (98) 02/28/17 07:00 Room Air 02/27/17 19:00 99 02/26/17 16:40 15.00 Intake and Output 02/28/17 02/28/17 03/01/17 08:00 16:00 00:00 Intake Total 1740 ml Output Total 1600 ml Balance 140 ml Result Diagram: 02/27/17 0459 02/27/17 0459 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
[2017-03-01] VITALS (7 sets, daily range): BP systolic 83–135; BP diastolic 54–67; PULSE 110–138; RESP 12–21; TEMP 97.6–98.6; O2SAT 96–100
[2017-03-01] MEDS: HYDROmorphone HCL PF 0.5 MG/0.5 ML SYRINGE IV PUSH PRN ×5 (01:23→17:00)
[2017-03-01] MEDS: CHLORHEXIDINE GLUCONATE 2 % 1 PACK (2 CLOTHS) TOP SCH (02:28)
[2017-03-01] MEDS: ACETAMINOPHEN/HYDROcodone 325 MG/10 MG TAB PO PRN ×4 (04:13→21:27)
[2017-03-01] MEDS: QUEtiapine FUMARATE 100 MG TAB PO SCH ×3 (05:19→21:26)
[2017-03-01] MEDS: DOCUSATE SODIUM 50 MG/SENNA 8.6 MG TAB PO SCH ×2 (09:00→21:00)
[2017-03-01] MEDS: levETIRAcetam 500 MG TAB PO SCH ×2 (09:11→21:27)
[2017-03-01] MEDS: chlordiazePOXIDE 25 MG CAP PO SCH ×3 (09:12→17:00)
[2017-03-01] MEDS: ZIPRASIDONE MESYLATE 20 MG VIAL IM PRN (14:43)
--- NOTE | 2017-03-01 15:54 | HHI.CCPN ---
Subjective Brief History 51-year-old male fell at home drunk, sustained forehead laceration while on Coumadin for chronic DVT then continue drinking and taking Coumadin until he fell again day or 2 later Patient brought into our institution dehydrated, hypovolemic with significant blood loss and laceration of the forehead heavily intoxicated Patient had forehead laceration repaired in the anticoagulation attended Is now in the ICU awake alert somewhat disoriented trying to get up and run away 24 Hour Review/Hospital Course 02/27/17 Trauma to the head with large laceration of the forehead which is not bleeding Patient has a nasal bone fracture which at this point does not require any urgent management and patient should follow up with the oral maxillofacial surgeon or a plastic surgeon on outpatient basis Neck is supple patient has not tenderness C-collar can be removed Grossly neurologically patient is fully intact moves all 4 extremities able to stand up Bilateral breath sounds Hemodynamically stable Abdomen is soft with active bowel sounds No active bleeding 02/28/17 Patient is hemodynamically stable Neurologically intact awake alert and oriented No neurologic deficit Abdomen soft diet well tolerated Patient awaiting bed on the floor for the last 24 hours and does not require ICU care 03/01/17 Patient confused and disoriented intermittently Developing delirium tremens and requiring Librium /Geodon/Seroquel Neurologically however patient is fully intact and [place] Coma Scale of 15 No motoric or sensory deficit with normal deep tendon reflexes and no pathologic reflexes Hemodynamically stable Bilateral breath sounds with good pulmonary expansion Abdomen soft active bowel sounds Tolerates diet well and ambulates Because of agitation patient waiting floor bed close to the nursing station for sitters are not provided Objective Vital Signs Date Time Temp Pulse Resp B/P (MAP) Pulse Ox O2 Delivery O2 Flow Rate FiO2 03/01/17 12:46 15 03/01/17 12:00 120 03/01/17 12:00 98.4 120/60 (80) 97 03/01/17 07:00 Room Air 02/27/17 19:00 99 02/26/17 16:40 15.00 Intake and Output 03/01/17 03/01/17 03/02/17 08:00 16:00 00:00 Intake Total 960 ml Output Total 300 ml Balance 660 ml Result Diagram: 02/27/17 0459 02/27/17 0459 Disinhibition Score: 26.18 Aggression Score: 17.50 Lability Score: 18.62 Agitated Behavior Total Score: 22 En Rodriguez MD Mar 01, 2017 15:54
[2017-03-02] VITALS (11 sets, daily range): BP systolic 110–130; BP diastolic 49–70; PULSE 91–120; RESP 15–19; TEMP 96–98.4; O2SAT 95–100
[2017-03-02] MEDS: CHLORHEXIDINE GLUCONATE 2 % 1 PACK (2 CLOTHS) TOP SCH (03:45)
[2017-03-02] MEDS: ACETAMINOPHEN/HYDROcodone 325 MG/10 MG TAB PO PRN ×3 (04:00→17:29)
[2017-03-02] MEDS: ZIPRASIDONE MESYLATE 20 MG VIAL IM PRN (04:00)
[2017-03-02 05:25] LABS: AUTOMATED NEUTROPHIL # 2.8 TH/MM3 (1.8-7.7); BASOPHIL % 0.6 % (0.0-2.0); EOSINOPHIL # 0.1 TH/MM3 (0-0.4); EOSINOPHIL % 1.4 % (0.0-4.0); LYMPH % 13.8 % (9.0-44.0); LYMPHOCYTE # 0.5 TH/MM3 (1.0-4.8); MEAN CELL VOLUME 70.5 FL (80.0-100.0); MEAN CORPUSCULAR HEMOGLOBIN 23.1 PG (27.0-34.0); MEAN CORPUSCULAR HGB CONC 32.7 % (32.0-36.0); MONO % 6.6 % (0.0-8.0); NEUT % 77.6 % (16.0-70.0); PLATELET COUNT 60 TH/MM3 (150-450); RED BLOOD COUNT 2.92 MIL/MM3 (4.50-5.90); RED CELL DISTRIBUTION WIDTH 23.4 % (11.6-17.2); WHITE BLOOD COUNT 3.6 TH/MM3 (4.0-11.0)
[2017-03-02 05:33] LABS: HEMO FLAGS AUTO DIFF
[2017-03-02 05:44] LABS: HEMATOCRIT 20.5 % (39.0-51.0)
[2017-03-02 06:04] LABS: BICARBONATE 22.4 MEQ/L (21.0-32.0)
[2017-03-02 06:08] LABS: POTASSIUM 2.8 MEQ/L (3.5-5.1)
[2017-03-02 06:19] LABS: CALCIUM-PROTEIN CORRECTED 8.7 MG/DL (8.5-10.1)
[2017-03-02] MEDS: QUEtiapine FUMARATE 100 MG TAB PO SCH ×3 (06:24→20:22)
[2017-03-02 07:35] LABS: POLYCHROMASIA 2.7 % (0.0-1.9); TARGET CELLS 1+ (NORMAL)
[2017-03-02 07:36] LABS: ACANTHOCYTES OCC (NORMAL); OVALOCYTES 1+ (NORMAL)
[2017-03-02 07:37] LABS: PLATELET ESTIMATE SMEAR LOW (NORMAL); PLATELET MORPHOLOGY NORMAL (NORMAL); SCAN/DIFF AUTO DIFF CONFIRMED
[2017-03-02] MEDS ORDERED: LORazepam 2 MG/ML VIAL IV PUSH ONE (07:45)
[2017-03-02] MEDS ORDERED: POTASSIUM CHLORIDE 25 MEQ EFFERVESCENT TAB PO ONE (08:00)
[2017-03-02] MEDS ORDERED: SODIUM CHLOR 0.9% 250 ML INJ 250 ML IV ONE (08:00)
[2017-03-02] MEDS: chlordiazePOXIDE 25 MG CAP PO SCH ×3 (08:11→17:29)
[2017-03-02] MEDS: levETIRAcetam 500 MG TAB PO SCH ×2 (08:11→20:20)
[2017-03-02] MEDS: DOCUSATE SODIUM 50 MG/SENNA 8.6 MG TAB PO SCH ×2 (08:12→20:20)
[2017-03-02] MEDS: POTASSIUM CHLOR 20 MEQ PREMIX 100 ML IV SCH ×2 (08:12→10:55)
--- NOTE | 2017-03-02 08:28 | HHI.PR ---
Neuropsych Behavior Behavior: Moderate: Impulsive/Agitated Cognitive Cognitive: Mild: Cognitive, Attention/Concentration, Confused/Orientation, Insight/Awareness, Judgement/Problem-Solving, Memory Psychosocial Psychosocial: Severe: Psychosocial, Family/Other Adjustment, Realistic Expectation, Unable to Asses: Self-Esteem/Confidence Progress Notes/Response to Tx Contents of Sessions: Adjustment Time with Patient: 30 minutes Premorbid psychological status Premorbid Cognitive, Emotional and Behavioral Status: Unstable. The patient has high school years of education but on SSDI for some physical reason. The patient has prior psychiatric difficulties, as described above. Substance abuse history is significant and directly contributed to his present situation. Behavioral Reactions of Patient and Family/Support System: Unstable. The patients family is not present. Emotional/Behavioral Status of Patient and Family/Support System: Unstable. Pertinent issues, if appropriate to this patients clinical care, are described in detail above. Maximizing acute care outcome It is recommended that the patient be monitored for emergent behavioral impulsivity as the medical condition evolves. His ongoing alcohol dependence will be a challenge and will need pharmacological management. At this point in the recovery process, the patient does not have basic cognitive capacity as the patient is not able to understand a situation and its likely consequences, and he is not able to manipulate information rationally albeit marginally rationally. Issues concerning capacity have changed given his current neurobehavioral situation. Cognitive capacity will be assessed throughout the recovery process. Anticipated Problems The greatest anticipated problem will be his ongoing alcohol dependence and his dependent personality disorder making it difficult to determine an accurate history. Ongoing areas of concern will include behavioral impulsivity, lack of insight and judgment, which is expected to improve with time and treatment. Presently, the patient is alert, oriented and following commands, although his cognition is presently attenuated by resolving alcohol intoxication. Treatment Plan This clinician will continue to follow with you throughout the course of this patients acute care treatment, and I will be available to meet with the patient s family/support system to facilitate their understanding and the ongoing care of their family member. The goals of neuropsychological intervention shall be both educational and supportive to the family/support system as is deemed clinically appropriate. [place] Level: IV:Confused/Agitated-maximal assist Disinhibition Score: 29.68 Aggression Score: 17.50 Lability Score: 23.24 Agitated Behavior Total Score: 25 Impression This is a 51 year old man with longstanding history of alcohol dependence and current alcohol intoxication who presents to the [facility] with multiple fall exacerbated by blood thinning medications, who has been agitated/restless since his admission. 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 Diagnosis: (1) Alcohol dependence in controlled environment Status: Chronic (2) Alcohol intoxication Status: Chronic (3) Dependent personality disorder Status: Chronic Progress Note Narrative Ongoing follow-up of patient seen during daily trauma rounds. This is day 4 post injury, and as predicted, the patient is entering alcohol withdrawal stages , managed on combination of Geodon/Seroquel/Librium. He received Geodon this morning at 0400 and more recently Ativan at 0812. His GCS is 15 and as such he is essentially neurocognitively intact. His ABS score is 25 (yesterday at 22), with disinhibition score of 30 (moderate agitation). Trauma team consideration is to start Valproic Acid 500 BID. He is [place] IV but this rating is spurious as the agitation reflect ETOH withdrawal and not brain injury sequelae. I will continue to follow. Problem Qualifiers (1) Alcohol intoxication: Qualified Codes: F10.921 - Alcohol use, unspecified with intoxication delirium Jose Luis Jane PhD Mar 02, 2017 8:28 am
--- NOTE | 2017-03-02 10:37 | HHI.PR ---
Subjective Subjective Notes PTD: 5; HD: 4 Patient OOB in restroom. Patient can be cooperative at times, however can quickly become impulsive and difficult to calm and control. Constantly getting OOB unassisted. Objective Vitals/I&O Vital Signs Date Time Temp Pulse Resp B/P (MAP) Pulse Ox O2 Delivery O2 Flow Rate FiO2 03/02/17 08:00 96.0 110 18 110/56 (74) 95 03/01/17 20:00 Room Air 02/27/17 19:00 99 02/26/17 16:40 15.00 Labs Laboratory Tests Test 03/02/17 04:37 White Blood Count 3.6 Red Blood Count 2.92 Hemoglobin 6.7 Hematocrit 20.5 Mean Corpuscular Volume 70.5 Mean Corpuscular Hemoglobin 23.1 Mean Corpuscular Hemoglobin Concent 32.7 Red Cell Distribution Width 23.4 Platelet Count 60 Mean Platelet Volume 8.2 Neutrophils (%) (Auto) 77.6 Lymphocytes (%) (Auto) 13.8 Monocytes (%) (Auto) 6.6 Eosinophils (%) (Auto) 1.4 Basophils (%) (Auto) 0.6 Neutrophils # (Auto) 2.8 Lymphocytes # (Auto) 0.5 Monocytes # (Auto) 0.2 Eosinophils # (Auto) 0.1 Basophils # (Auto) 0.0 CBC Comment AUTO DIFF Differential Comment AUTO DIFF CONFIRMED Platelet Estimate LOW Platelet Morphology Comment NORMAL Polychromasia 2.7 Target Cells 1+ Ovalocytes 1+ Acanthocytes OCC Keratocytes Blood Urea Nitrogen 6 Creatinine 0.54 Random Glucose 63 Total Protein 4.8 Calcium Level 7.4 Sodium Level 138 Potassium Level 2.8 Chloride Level 103 Carbon Dioxide Level 22.4 Anion Gap 13 Estimat Glomerular Filtration Rate 159 Protein Corrected Calcium 8.7 Radiology Laboratory Tests Test 02/26/17 16:45 02/26/17 20:30 02/27/17 04:59 03/02/17 04:37 Bedside Hemoglobin 9.5 G/DL Bedside Hematocrit 28.0 % Prothrombin Time 11.5 SEC Prothromb Time International Ratio 1.0 RATIO Activated Partial Thromboplast Time 26.1 SEC Bedside Sodium 135 MMOL/L Bedside Potassium 3.0 MMOL/L Bedside Chloride 97 MMOL/L Bedside Blood Urea Nitrogen LESS THAN 3 MG/DL Bedside Creatinine 1.1 MG/DL Bedside Glucose 137 MG/DL Phosphorus Level 3.1 MG/DL Total Creatine Kinase 278 U/L Ethyl Alcohol Level 222 MG/DL Nasal Screen MRSA (PCR) MRSA NOT DETECTED Differential Total Cells Counted 100 Neutrophils % (Manual) 87 % Lymphocytes % 11 % Monocytes % 2 % Neutrophils # (Manual) 8.6 TH/MM3 Nucleated Red Blood Cells 4 /100 WBC Basophilic Stippling FAINT White Blood Count 3.6 TH/MM3 Red Blood Count 2.92 MIL/MM3 Hemoglobin 6.7 GM/DL Hematocrit 20.5 % Mean Corpuscular Volume 70.5 FL Mean Corpuscular Hemoglobin 23.1 PG Mean Corpuscular Hemoglobin Concent 32.7 % Red Cell Distribution Width 23.4 % Platelet Count 60 TH/MM3 Mean Platelet Volume 8.2 FL Neutrophils (%) (Auto) 77.6 % Lymphocytes (%) (Auto) 13.8 % Monocytes (%) (Auto) 6.6 % Eosinophils (%) (Auto) 1.4 % Basophils (%) (Auto) 0.6 % Neutrophils # (Auto) 2.8 TH/MM3 Lymphocytes # (Auto) 0.5 TH/MM3 Monocytes # (Auto) 0.2 TH/MM3 Eosinophils # (Auto) 0.1 TH/MM3 Basophils # (Auto) 0.0 TH/MM3 CBC Comment AUTO DIFF Differential Comment AUTO DIFF CONFIRMED Platelet Estimate LOW Platelet Morphology Comment NORMAL Polychromasia 2.7 % Target Cells 1+ Ovalocytes 1+ Acanthocytes OCC Keratocytes Blood Urea Nitrogen 6 MG/DL Creatinine 0.54 MG/DL Random Glucose 63 MG/DL Total Protein 4.8 GM/DL Calcium Level 7.4 MG/DL Sodium Level 138 MEQ/L Potassium Level 2.8 MEQ/L Chloride Level 103 MEQ/L Carbon Dioxide Level 22.4 MEQ/L Anion Gap 13 MEQ/L Estimat Glomerular Filtration Rate 159 ML/MIN Protein Corrected Calcium 8.7 MG/DL Narrative Exam GENERAL: This is a 51-year-old male OOB in the restroom. SKIN: Warm and dry. HEAD: . Normocephalic. Left scalp with dede. EMMA. EYES: LEFT eye with ecchymosis. ENT: No nasal bleeding or discharge. Mucous membranes pink and moist. NECK: Trachea midline. No JVD. CARDIOVASCULAR: Regular rate and rhythm. RESPIRATORY: No accessory muscle use. Lungs are clear to auscultation. Breath sounds equal bilaterally. No distress or dyspnea. GASTROINTESTINAL: BS + x 4 quads. Abdomen soft, non-tender, nondistended. MUSCULOSKELETAL: Extremities without cyanosis, or edema. + peripheral pulses x 4 extremities. Warm with good capillary refill and sensation. MAEW. NEUROLOGICAL: Awake and alert. Patient can be calm and cooperative 1 minute, then impulsive and difficult to redirect the next. Gait unsteady. A/P Problem List: (1) Nasal bone fracture ICD Codes: S02.2XXA - Fracture of nasal bones, initial encounter for closed fracture Status: Acute (2) Hemorrhagic shock ICD Codes: R57.8 - Other shock Status: Acute (3) Fall ICD Codes: W19.XXXA - Unspecified fall, initial encounter Status: Acute (4) Forehead laceration ICD Codes: S01.81XA - Laceration without foreign body of other part of head, initial encounter Status: Acute (5) Alcohol intoxication ICD Codes: F10.929 - Alcohol use, unspecified with intoxication, unspecified Status: Chronic (6) Alcohol dependence in controlled environment ICD Codes: F10.20 - Alcohol dependence, uncomplicated Status: Chronic (7) Dependent personality disorder ICD Codes: F60.7 - Dependent personality disorder Status: Chronic Assessment and Plan MANZANITA: This is a 51-year-old male who sustained a fall at home. He cut his head, but did not seek medical care. He fell again at home the day after and could not control the bleeding. He is on Eliquis at home. EtOH 222. PRBC 2 given INJURIES: LEFT frontal scalp lac (dede/sutures) Nasal bone fx (displaced) Incidental right hepatic lobe nodule, thyroid nodule PMHx: ETOH abuse (Drinks six 24oz cans of beer QD), DVT (on Eliquis). [place]. Procedures: Consults: OMFS. Case management Diet: Regular diet. Tolerating po diet. Encourage good po intake with each meal. One beer with each meal tray, however patient will not drink it, as he does not like the taste of it. Pulmonary: Encourage good pulmonary toileting. IS at bedside and pt encouraged to use. Rationale for use explained to patient, and verbalized understanding. KCL = 2.8. Potassium IV 40 mEq x 1 and Potassium EFF 25 mEq x 1 Repeat labs in the morning. PAIN Management: [place] 5-10mg q 4h. Dilaudid 0.5mg q 3h Behavior: Seroquel 150 q 8h, Valproic acid 500 BID. Geodon 10 mg BID PRN. ETOH: LIBRIUM TID. Ativan 1 mg q 4h. Activity: OOB. PT ordered. GI prophylaxis: Pepcid 20 mg BID. Bowel regimen: [place]-colace. MOM. PRN Lactulose. Senna PRN. LBM: 0 DVT prophylaxis: Mechanical VTE with SCDs. Chemical management - Lovenox on hold at this point due to drop in platelets. DC Planning: Case management consulted for assistance with final discharge disposition. Emotional support provided to patient and family at bedside and plan of care discussed. Discussed with RN at bedside. Discussed pt condition and plan of care with collaborating trauma surgeon. Patient is hemodynamically stable and being managed on the med/surg floor. The trauma team will round each day, and evaluate plan of care on a daily basis. LEFT frontal scalp lac (dede/sutures) Sutures and dede in place. EMMA Monitor site closely Post traumatic blood lass anemia H&H = 6.7 / 20.5 low Type and screen stat Transfuse PRBC x 2 today STAT Recheck H&H post infusion Nasal bone fx F/U outpatient ETOH abuse 1 beer with each meal tray Monitor for S&S of DT's Librium 25 mg TID Geodon 10 mg BID PRN Seroquel 150 mg q 8h. Valproic acid 500 mg BID. Ativan 1 mg q 4 h PRN agitation or DTs. Placed in bed close to the nursing station for close monitoring. Problem Qualifiers (1) Nasal bone fracture: Qualified Codes: S02.2XXA - Fracture of nasal bones, initial encounter for closed fracture (2) Fall: Qualified Codes: W19.XXXA - Unspecified fall, initial encounter (3) Forehead laceration: Qualified Codes: S01.81XA - Laceration without foreign body of other part of head, initial encounter (4) Alcohol intoxication: Qualified Codes: F10.921 - Alcohol use, unspecified with intoxication delirium Shira Brown Mar 02, 2017 10:37
--- NOTE | 2017-03-02 16:23 | RADRPT ---
EXAM DATE/TIME: 03/02/2017 16:07 [place] COMPARISON: No previous studies available for comparison. INDICATIONS : Left shoulder pain. MEDICAL HISTORY : None. SURGICAL HISTORY : None. ENCOUNTER: Initial ACUITY: 4 - 6 days PAIN SCORE: 10/10 LOCATION: Left shoulder FINDINGS: Multiple view examination of the left shoulder demonstrates no evidence of fracture or dislocation. The glenohumeral and acromioclavicular joints are maintained. There is normal range of motion betwee n internal and external rotation. Bony mineralization is normal. CONCLUSION: Negative exam. Harjinder Kirkland MD on March 02, 2017 at 16:21 Board Certified Radiologist. This report was verified electronically.
[2017-03-02] MEDS: LORazepam 2 MG/ML VIAL IV PUSH PRN (17:30)
[2017-03-02] MEDS: FAMOTIDINE 20 MG TAB PO SCH (20:20)
[2017-03-02] MEDS: VALPROIC ACID 250 MG CAP PO SCH (20:20)
[2017-03-03] VITALS (8 sets, daily range): BP systolic 107–130; BP diastolic 66–72; PULSE 94–107; RESP 17–18; TEMP 97.3–99.4; O2SAT 96–99
[2017-03-03] MEDS: CHLORHEXIDINE GLUCONATE 2 % 1 PACK (2 CLOTHS) TOP SCH (04:00)
[2017-03-03] MEDS: QUEtiapine FUMARATE 100 MG TAB PO SCH ×3 (04:13→21:16)
[2017-03-03 07:09] LABS: ALT (GPT) 42 U/L (12-78)
[2017-03-03 07:11] LABS: ALKALINE PHOSPHATASE 107 U/L (45-117); TOTAL BILIRUBIN ADULT 1.1 MG/DL (0.2-1.0)
[2017-03-03 07:14] LABS: ANION GAP 10 MEQ/L (5-15); AST (GOT) 76 U/L (15-37); BICARBONATE 23.4 MEQ/L (21.0-32.0); BLOOD UREA NITROGEN 3 MG/DL (7-18); CHLORIDE 108 MEQ/L (98-107); GLOMERULAR FILTRATION RATE 202 ML/MIN (>89); MAGNESIUM 1.6 MG/DL (1.5-2.5); POTASSIUM 3.2 MEQ/L (3.5-5.1); SODIUM (NA) 141 MEQ/L (136-145)
[2017-03-03 07:41] LABS: MEAN CELL VOLUME 74.8 FL (80.0-100.0); MEAN CORPUSCULAR HEMOGLOBIN 23.7 PG (27.0-34.0); MEAN CORPUSCULAR HGB CONC 31.7 % (32.0-36.0); PLATELET COUNT 64 TH/MM3 (150-450); RED BLOOD COUNT 3.75 MIL/MM3 (4.50-5.90); RED CELL DISTRIBUTION WIDTH 25.1 % (11.6-17.2); WHITE BLOOD COUNT 4.9 TH/MM3 (4.0-11.0)
[2017-03-03 08:09] LABS: HEMO FLAGS AUTO DIFF
--- NOTE | 2017-03-03 08:36 | HHI.PR ---
Neuropsych Behavior Behavior: Moderate: Behavior, Coping/Acceptance, Cooperative w/ Treatment, Motivation Cognitive Cognitive: Mild: Cognitive, Attention/Concentration, Confused/Orientation, Insight/Awareness, Judgement/Problem-Solving, Memory Psychosocial Psychosocial: Severe: Psychosocial, Family/Other Adjustment, Realistic Expectation, Unable to Asses: Self-Esteem/Confidence Progress Notes/Response to Tx Contents of Sessions: Adjustment Time with Patient: 30 minutes Premorbid psychological status Premorbid Cognitive, Emotional and Behavioral Status: Unstable. The patient has high school years of education but on SSDI for some physical reason. The patient has prior psychiatric difficulties, as described above. Substance abuse history is significant and directly contributed to his present situation. Behavioral Reactions of Patient and Family/Support System: Unstable. The patients family is not present. Emotional/Behavioral Status of Patient and Family/Support System: Unstable. Pertinent issues, if appropriate to this patients clinical care, are described in detail above. Maximizing acute care outcome It is recommended that the patient be monitored for emergent behavioral impulsivity as the medical condition evolves. His ongoing alcohol dependence will be a challenge and will need pharmacological management. At this point in the recovery process, the patient does not have basic cognitive capacity as the patient is not able to understand a situation and its likely consequences, and he is not able to manipulate information rationally albeit marginally rationally. Issues concerning capacity have changed given his current neurobehavioral situation. Cognitive capacity will be assessed throughout the recovery process. Anticipated Problems The greatest anticipated problem will be his ongoing alcohol dependence and his dependent personality disorder making it difficult to determine an accurate history. Ongoing areas of concern will include behavioral impulsivity, lack of insight and judgment, which is expected to improve with time and treatment. Presently, the patient is alert, oriented and following commands, although his cognition is presently attenuated by resolving alcohol intoxication. Treatment Plan This clinician will continue to follow with you throughout the course of this patients acute care treatment, and I will be available to meet with the patient s family/support system to facilitate their understanding and the ongoing care of their family member. The goals of neuropsychological intervention shall be both educational and supportive to the family/support system as is deemed clinically appropriate. Disinhibition Score: 29.68 Aggression Score: 17.50 Lability Score: 23.24 Agitated Behavior Total Score: 25 Impression This is a 51 year old man with longstanding history of alcohol dependence and current alcohol intoxication who presents to the [facility] with multiple fall exacerbated by blood thinning medications, who has been agitated/restless since his admission. 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 Diagnosis: (1) Alcohol dependence in controlled environment Status: Chronic (2) Alcohol intoxication Status: Chronic (3) Dependent personality disorder Status: Chronic Progress Note Narrative Ongoing follow-up of patient seen during daily trauma rounds. This is day 5 post injury (120 hours out). Yesterday, he was impulsive, getting OOB without assistance, fluctuating neurobehavioral issues from calm to erratic, presumed due to ETOH withdrawals. He was started on Valproic Acid 500 BID as an adjunct to his current medication regimen that includes Seroquel 150 TID, and Ativan 1m q4H PRN. His ABS score two days ago was 22, and yesterday it was 25 (with the disinhibition score being the greatest local delivery driver of this composite score), and as such that a restlessness component was the main local delivery driver, trauma team elected the Valproic adjunct. He also has a Geodon PRN, but this was not needed since early yesterday. He is also being administered 3 beers per day, but he reportedly doesn't like the taste. As we are 120 hours out, his behavior should improve greatly going forward. I will continue to follow. Problem Qualifiers (1) Alcohol intoxication: Qualified Codes: F10.921 - Alcohol use, unspecified with intoxication delirium Jose Luis Jane PhD Mar 03, 2017 8:36 am
[2017-03-03] MEDS: DOCUSATE SODIUM 50 MG/SENNA 8.6 MG TAB PO SCH ×2 (09:00→21:00)
[2017-03-03 09:04] LABS: BANDS 3 % (0-6); NEUTROPHIL # MANUAL DIFF 4.6 TH/MM3 (1.8-7.7); POLYS (SEG NEUTROPHILS) 90 % (16-70); WBC DIFF SAMPLE 100
[2017-03-03 09:05] LABS: PLATELET ESTIMATE SMEAR LOW (NORMAL); PLATELET MORPHOLOGY NORMAL (NORMAL); POLYCHROMASIA 2.1 % (0.0-1.9); SCAN/DIFF FINAL DIFF MANUAL
[2017-03-03 09:06] LABS: OVALOCYTES 1+ (NORMAL); TARGET CELLS 1+ (NORMAL)
[2017-03-03] MEDS: chlordiazePOXIDE 25 MG CAP PO SCH ×3 (10:57→18:53)
[2017-03-03] MEDS: levETIRAcetam 500 MG TAB PO SCH ×2 (10:57→21:18)
[2017-03-03] MEDS: FAMOTIDINE 20 MG TAB PO SCH ×2 (10:57→21:17)
[2017-03-03] MEDS: ACETAMINOPHEN/HYDROcodone 325 MG/10 MG TAB PO PRN ×2 (10:57→21:15)
[2017-03-03] MEDS: VALPROIC ACID 250 MG CAP PO SCH ×2 (10:57→21:15)
[2017-03-03] MEDS: LORazepam 2 MG/ML VIAL IV PUSH PRN (10:58)
--- NOTE | 2017-03-03 11:35 | HHI.PR ---
Subjective Subjective Notes PTD: 6; HD: 5 Patient asleep. No distress noted. Observed later in the day ambulating with assist in room. No complaints offered. Objective Vitals/I&O Vital Signs Date Time Temp Pulse Resp B/P (MAP) Pulse Ox O2 Delivery O2 Flow Rate FiO2 03/03/17 08:00 97.3 99 18 127/70 (89) 99 03/02/17 20:25 Room Air 02/27/17 19:00 99 Labs Laboratory Tests Test 03/03/17 06:15 White Blood Count 4.9 Red Blood Count 3.75 Hemoglobin 8.9 Hematocrit 28.0 Mean Corpuscular Volume 74.8 Mean Corpuscular Hemoglobin 23.7 Mean Corpuscular Hemoglobin Concent 31.7 Red Cell Distribution Width 25.1 Platelet Count 64 Mean Platelet Volume 8.5 CBC Comment AUTO DIFF Differential Total Cells Counted 100 Neutrophils % (Manual) 90 Band Neutrophils % 3 Lymphocytes % 5 Monocytes % 2 Neutrophils # (Manual) 4.6 Differential Comment FINAL DIFF MANUAL Platelet Estimate LOW Platelet Morphology Comment NORMAL Polychromasia 2.1 Target Cells 1+ Ovalocytes 1+ Hematology Comments Blood Urea Nitrogen 3 Creatinine 0.44 Random Glucose 76 Total Protein 4.9 Albumin 2.1 Calcium Level 7.5 Magnesium Level 1.6 Alkaline Phosphatase 107 Aspartate Amino Transf (AST/SGOT) 76 Alanine Aminotransferase (ALT/SGPT) 42 Total Bilirubin 1.1 Sodium Level 141 Potassium Level 3.2 Chloride Level 108 Carbon Dioxide Level 23.4 Anion Gap 10 Estimat Glomerular Filtration Rate 202 Radiology Laboratory Tests Test 02/26/17 16:45 02/26/17 20:30 02/27/17 04:59 03/02/17 04:37 Bedside Hemoglobin 9.5 G/DL Bedside Hematocrit 28.0 % Prothrombin Time 11.5 SEC Prothromb Time International Ratio 1.0 RATIO Activated Partial Thromboplast Time 26.1 SEC Bedside Sodium 135 MMOL/L Bedside Potassium 3.0 MMOL/L Bedside Chloride 97 MMOL/L Bedside Blood Urea Nitrogen LESS THAN 3 MG/DL Bedside Creatinine 1.1 MG/DL Bedside Glucose 137 MG/DL Phosphorus Level 3.1 MG/DL Total Creatine Kinase 278 U/L Ethyl Alcohol Level 222 MG/DL Nasal Screen MRSA (PCR) MRSA NOT DETECTED Differential Total Cells Counted 100 Neutrophils % (Manual) 87 % Lymphocytes % 11 % Monocytes % 2 % Neutrophils # (Manual) 8.6 TH/MM3 Nucleated Red Blood Cells 4 /100 WBC Basophilic Stippling FAINT White Blood Count 3.6 TH/MM3 Red Blood Count 2.92 MIL/MM3 Hemoglobin 6.7 GM/DL Hematocrit 20.5 % Mean Corpuscular Volume 70.5 FL Mean Corpuscular Hemoglobin 23.1 PG Mean Corpuscular Hemoglobin Concent 32.7 % Red Cell Distribution Width 23.4 % Platelet Count 60 TH/MM3 Mean Platelet Volume 8.2 FL Neutrophils (%) (Auto) 77.6 % Lymphocytes (%) (Auto) 13.8 % Monocytes (%) (Auto) 6.6 % Eosinophils (%) (Auto) 1.4 % Basophils (%) (Auto) 0.6 % Neutrophils # (Auto) 2.8 TH/MM3 Lymphocytes # (Auto) 0.5 TH/MM3 Monocytes # (Auto) 0.2 TH/MM3 Eosinophils # (Auto) 0.1 TH/MM3 Basophils # (Auto) 0.0 TH/MM3 CBC Comment AUTO DIFF Differential Comment AUTO DIFF CONFIRMED Platelet Estimate LOW Platelet Morphology Comment NORMAL Polychromasia 2.7 % Target Cells 1+ Ovalocytes 1+ Acanthocytes OCC Keratocytes Blood Urea Nitrogen 6 MG/DL Creatinine 0.54 MG/DL Random Glucose 63 MG/DL Total Protein 4.8 GM/DL Calcium Level 7.4 MG/DL Sodium Level 138 MEQ/L Potassium Level 2.8 MEQ/L Chloride Level 103 MEQ/L Carbon Dioxide Level 22.4 MEQ/L Anion Gap 13 MEQ/L Estimat Glomerular Filtration Rate 159 ML/MIN Protein Corrected Calcium 8.7 MG/DL Narrative Exam GENERAL: This is a 51-year-old male OOB in the restroom. SKIN: Warm and dry. HEAD: . Normocephalic. Left scalp/eye brow with sutures. PROCUREMENT SPECIALIST. EYES: LEFT eye with ecchymosis. ENT: No nasal bleeding or discharge. Mucous membranes pink and moist. NECK: Trachea midline. No JVD. CARDIOVASCULAR: Regular rate and rhythm. RESPIRATORY: No accessory muscle use. Lungs are clear to auscultation. Breath sounds equal bilaterally. No distress or dyspnea. GASTROINTESTINAL: BS + x 4 quads. Abdomen soft, non-tender, nondistended. MUSCULOSKELETAL: Extremities without cyanosis, or edema. + peripheral pulses x 4 extremities. Warm with good capillary refill and sensation. MAEW. NEUROLOGICAL: Awake and alert. Patient can be impulsive and difficult to redirect at times. Gait unsteady. A/P Problem List: (1) Nasal bone fracture ICD Codes: S02.2XXA - Fracture of nasal bones, initial encounter for closed fracture Status: Acute (2) Hemorrhagic shock ICD Codes: R57.8 - Other shock Status: Acute (3) Fall ICD Codes: W19.XXXA - Unspecified fall, initial encounter Status: Acute (4) Forehead laceration ICD Codes: S01.81XA - Laceration without foreign body of other part of head, initial encounter Status: Acute (5) Alcohol intoxication ICD Codes: F10.929 - Alcohol use, unspecified with intoxication, unspecified Status: Chronic (6) Alcohol dependence in controlled environment ICD Codes: F10.20 - Alcohol dependence, uncomplicated Status: Chronic (7) Dependent personality disorder ICD Codes: F60.7 - Dependent personality disorder Status: Chronic Assessment and Plan SAXMAN: This is a 51-year-old male who sustained a fall at home. He cut his head, but did not seek medical care. He fell again at home the day after and could not control the bleeding. He is on Eliquis at home. EtOH 222. PRBC 2 given INJURIES: LEFT frontal scalp lac (dede/sutures) Nasal bone fx (displaced) Incidental right hepatic lobe nodule, thyroid nodule PMHx: ETOH abuse (Drinks six 24oz cans of beer QD), DVT (on Eliquis). Chron's. Procedures: Consults: OMFS. Case management Diet: Regular diet. Tolerating po diet. Encourage good po intake with each meal. One beer with each meal tray, however patient will not drink it, as he does not like the taste of it. Pulmonary: Encourage good pulmonary toileting. IS at bedside and pt encouraged to use. Rationale for use explained to patient, and verbalized understanding. K = 3.2. Potassium 25 mEq x 1 dose today for replacement Repeat labs in the morning. PAIN Management: [place] 5-10mg q 4h. Dilaudid 0.5mg q 3h Behavior: Seroquel 150 q 8h, Valproic acid 500 BID. Geodon 10 mg BID PRN. ETOH: LIBRIUM TID. Ativan 1 mg q 4h. Activity: OOB. PT ordered. GI prophylaxis: Pepcid 20 mg BID. Bowel regimen: Morenita-colace. MOM. PRN Lactulose. Senna PRN. LBM: 03/03. DVT prophylaxis: Mechanical VTE with SCDs. Chemical management - Lovenox on hold at this point due to drop in platelets. DC Planning: Case management consulted for assistance with final discharge disposition. Emotional support provided to patient and family at bedside and plan of care discussed. Discussed with RN at bedside. Discussed pt condition and plan of care with collaborating trauma surgeon. Patient is hemodynamically stable and being managed on the med/surg floor. The trauma team will round each day, and evaluate plan of care on a daily basis. LEFT frontal scalp lac (dede/sutures) Sutures in place. PROCUREMENT SPECIALIST Monitor site closely Remove sutures today Post traumatic blood lass anemia 03/03: H&H = 8.9 / 28.0 improved Follow up labs in the AM 03/02: H&H = 6.7 / 20.5 low Type and screen stat Transfuse PRBC x 2 today STAT Nasal bone fx F/U outpatient ETOH abuse 1 beer with each meal tray Monitor for S&S of DT's Librium 25 mg TID Geodon 10 mg BID PRN Seroquel 150 mg q 8h. Valproic acid 500 mg BID. Ativan 1 mg q 4 h PRN agitation or DTs. Placed in bed close to the nursing station for close monitoring. Allergy for Ancef was mistakenly place on this patient. Ancef allergy removed. Remarks seen and examined with [employer]NAGER [employer],agree with assessment and plan,resting comfortably, continue pain control,DVT prophylaxis,discharge planning Problem Qualifiers (1) Nasal bone fracture: Qualified Codes: S02.2XXA - Fracture of nasal bones, initial encounter for closed fracture (2) Fall: Qualified Codes: W19.XXXA - Unspecified fall, initial encounter (3) Forehead laceration: Qualified Codes: S01.81XA - Laceration without foreign body of other part of head, initial encounter (4) Alcohol intoxication: Qualified Codes: F10.921 - Alcohol use, unspecified with intoxication delirium Shira Brown Mar 03, 2017 11:35 Elise Pollard MD Mar 03, 2017 17:34
[2017-03-03] MEDS ORDERED: POTASSIUM CHLORIDE 25 MEQ EFFERVESCENT TAB PO ONE (15:00)
[2017-03-03] MEDS: HYDROmorphone HCL PF 0.5 MG/0.5 ML SYRINGE IV PUSH PRN (22:28)
[2017-03-04] VITALS (7 sets, daily range): BP systolic 99–136; BP diastolic 56–71; PULSE 89–112; RESP 16–18; TEMP 96.7–99.5; O2SAT 94–99
[2017-03-04] MEDS: CHLORHEXIDINE GLUCONATE 2 % 1 PACK (2 CLOTHS) TOP SCH (04:00)
[2017-03-04] MEDS: QUEtiapine FUMARATE 100 MG TAB PO SCH ×3 (05:33→20:35)
[2017-03-04] MEDS: DOCUSATE SODIUM 50 MG/SENNA 8.6 MG TAB PO SCH ×2 (09:00→20:37)
[2017-03-04] MEDS: VALPROIC ACID 250 MG CAP PO SCH ×2 (09:17→20:36)
[2017-03-04] MEDS: chlordiazePOXIDE 25 MG CAP PO SCH ×3 (09:17→17:58)
[2017-03-04] MEDS: levETIRAcetam 500 MG TAB PO SCH ×2 (09:17→20:36)
[2017-03-04] MEDS: FAMOTIDINE 20 MG TAB PO SCH ×2 (09:18→20:36)
--- NOTE | 2017-03-04 11:42 | HHI.PR ---
Subjective Subjective Notes PTD: 7; HD: 6 Patient lying in bed. No distress noted. Patient states he's been eating okay. When asked about ambulation, patient states, "I am doing a little better." Patient counseled on his behavior to staff, and instructed to be respectable to the nurses. Patient agrees, and apologizes for his poor behavior. Objective Vitals/I&O Vital Signs Date Time Temp Pulse Resp B/P (MAP) Pulse Ox O2 Delivery O2 Flow Rate FiO2 03/04/17 09:13 105 03/04/17 09:13 Room Air 03/04/17 07:46 96.7 18 114/58 (76) 97 Narrative Exam GENERAL: This is a 51-year-old male lying in bed. No distress noted. SKIN: Warm and dry. HEAD: . Normocephalic. Left scalp/eye brow healing laceration. ZIGZAG APPLIQUER. EYES: LEFT eye with ecchymosis. ENT: No nasal bleeding or discharge. Mucous membranes pink and moist. NECK: Trachea midline. No JVD. CARDIOVASCULAR: Regular rate and rhythm. RESPIRATORY: No accessory muscle use. Lungs are clear to auscultation. Breath sounds equal bilaterally. No distress or dyspnea. GASTROINTESTINAL: BS + x 4 quads. Abdomen soft, non-tender, nondistended. MUSCULOSKELETAL: Extremities without cyanosis, or edema. + peripheral pulses x 4 extremities. Warm with good capillary refill and sensation. MAEW. NEUROLOGICAL: Awake and alert. Patient less impulsive today. Gait unsteady. A/P Problem List: (1) Nasal bone fracture ICD Codes: S02.2XXA - Fracture of nasal bones, initial encounter for closed fracture Status: Acute (2) Hemorrhagic shock ICD Codes: R57.8 - Other shock Status: Acute (3) Fall ICD Codes: W19.XXXA - Unspecified fall, initial encounter Status: Acute (4) Forehead laceration ICD Codes: S01.81XA - Laceration without foreign body of other part of head, initial encounter Status: Acute (5) Alcohol intoxication ICD Codes: F10.929 - Alcohol use, unspecified with intoxication, unspecified Status: Chronic (6) Alcohol dependence in controlled environment ICD Codes: F10.20 - Alcohol dependence, uncomplicated Status: Chronic (7) Dependent personality disorder ICD Codes: F60.7 - Dependent personality disorder Status: Chronic Assessment and Plan KAKE: This is a 51-year-old male who sustained a fall at home. He cut his head, but did not seek medical care. He fell again at home the day after and could not control the bleeding. He is on Eliquis at home. EtOH 222. PRBC 2 given INJURIES: LEFT frontal scalp lac (dede/sutures) Nasal bone fx (displaced) Incidental right hepatic lobe nodule, thyroid nodule PMHx: ETOH abuse (Drinks six 24oz cans of beer QD), DVT (on Eliquis). Chron's. Procedures: Consults: OMFS. Case management Diet: Regular diet. Tolerating po diet. Encourage good po intake with each meal. One beer with each meal tray, however patient will not drink it, as he does not like the taste of it. Pulmonary: Encourage good pulmonary toileting. IS at bedside and pt encouraged to use. Rationale for use explained to patient, and verbalized understanding. Still awaiting a.m. labs to be drawn and resulted. PAIN Management: [place] 5-10mg q 4h. Dilaudid 0.5mg q 3h Behavior: Seroquel 150 q 8h, Valproic acid 500 BID. Geodon 10 mg BID PRN. ETOH: LIBRIUM TID. Ativan 1 mg q 4h. Activity: OOB. PT ordered. GI prophylaxis: Pepcid 20 mg BID. Bowel regimen: Morenita-colace. MOM. PRN Lactulose. Senna PRN. LBM: 03/04. DVT prophylaxis: Mechanical VTE with SCDs. Chemical management - Lovenox on hold at this point due to drop in platelets. DC Planning: Case management consulted for assistance with final discharge disposition. Emotional support provided to patient and family at bedside and plan of care discussed. Discussed with RN at bedside. Discussed pt condition and plan of care with collaborating trauma surgeon. Patient is hemodynamically stable and being managed on the med/surg floor. The trauma team will round each day, and evaluate plan of care on a daily basis. LEFT frontal scalp lac (dede/sutures) Sutures in place. EMMA Monitor site closely Remove sutures today Post traumatic blood lass anemia 03/04: Awaiting today's labs to be drawn and resulted 03/03: H&H = 8.9 / 28.0 improved 03/02: H&H = 6.7 / 20.5 low Type and screen stat Transfuse PRBC x 2 today STAT Nasal bone fx F/U outpatient ETOH abuse 1 beer with each meal tray Monitor for S&S of DT's Librium 25 mg TID Geodon 10 mg BID PRN Seroquel 150 mg q 8h. Valproic acid 500 mg BID. Ativan 1 mg q 4 h PRN agitation or DTs. Placed in bed close to the nursing station for close monitoring. Problem Qualifiers (1) Nasal bone fracture: Qualified Codes: S02.2XXA - Fracture of nasal bones, initial encounter for closed fracture (2) Fall: Qualified Codes: W19.XXXA - Unspecified fall, initial encounter (3) Forehead laceration: Qualified Codes: S01.81XA - Laceration without foreign body of other part of head, initial encounter (4) Alcohol intoxication: Qualified Codes: F10.921 - Alcohol use, unspecified with intoxication delirium Shira Brown Mar 04, 2017 11:42
[2017-03-04 15:40] LABS: BASOPHIL % 0.5 % (0.0-2.0); EOSINOPHIL % 0.7 % (0.0-4.0); HEMATOCRIT 31.5 % (39.0-51.0); LYMPH % 7.4 % (9.0-44.0); LYMPHOCYTE # 0.5 TH/MM3 (1.0-4.8); MEAN CELL VOLUME 73.5 FL (80.0-100.0); MEAN CORPUSCULAR HEMOGLOBIN 25.1 PG (27.0-34.0); MEAN CORPUSCULAR HGB CONC 34.1 % (32.0-36.0); MONO % 9.8 % (0.0-8.0); NEUT % 81.6 % (16.0-70.0); PLATELET COUNT 106 TH/MM3 (150-450); RED BLOOD COUNT 4.29 MIL/MM3 (4.50-5.90); WHITE BLOOD COUNT 6.1 TH/MM3 (4.0-11.0)
[2017-03-04 15:43] LABS: HEMO FLAGS AUTO DIFF
[2017-03-04 15:51] LABS: POTASSIUM 3.2 MEQ/L (3.5-5.1)
[2017-03-04 16:04] LABS: BICARBONATE 23.3 MEQ/L (21.0-32.0)
[2017-03-04 16:17] LABS: OVALOCYTES 1+ (NORMAL); PLATELET ESTIMATE SMEAR LOW (NORMAL); PLATELET MORPHOLOGY NORMAL (NORMAL); SCAN/DIFF AUTO DIFF CONFIRMED; TEARDROP RBCS 1+ (NORMAL)
[2017-03-04] MEDS: ACETAMINOPHEN/HYDROcodone 325 MG/10 MG TAB PO PRN (20:40)
[2017-03-04] MEDS: LORazepam 2 MG/ML VIAL IV PUSH PRN (22:10)
[2017-03-04] MEDS: HYDROmorphone HCL PF 0.5 MG/0.5 ML SYRINGE IV PUSH PRN (23:42)
[2017-03-05] VITALS (11 sets, daily range): BP systolic 92–155; BP diastolic 46–73; PULSE 99–140; RESP 18–20; TEMP 97.8–103.5; O2SAT 94–99
[2017-03-05] MEDS: ACETAMINOPHEN/HYDROcodone 325 MG/10 MG TAB PO PRN ×3 (00:21→17:40)
[2017-03-05] MEDS: CHLORHEXIDINE GLUCONATE 2 % 1 PACK (2 CLOTHS) TOP SCH (02:49)
[2017-03-05] MEDS: QUEtiapine FUMARATE 100 MG TAB PO SCH ×4 (05:20→22:16)
[2017-03-05] MEDS: VALPROIC ACID 250 MG CAP PO SCH ×2 (08:39→22:16)
[2017-03-05] MEDS: DOCUSATE SODIUM 50 MG/SENNA 8.6 MG TAB PO SCH ×2 (08:39→22:17)
[2017-03-05] MEDS: levETIRAcetam 500 MG TAB PO SCH ×2 (08:39→22:15)
[2017-03-05] MEDS: FAMOTIDINE 20 MG TAB PO SCH ×2 (08:40→22:15)
[2017-03-05] MEDS: chlordiazePOXIDE 25 MG CAP PO SCH ×3 (08:40→17:40)
[2017-03-05] MEDS: LORazepam 2 MG/ML VIAL IV PUSH PRN (08:44)
[2017-03-05] MEDS ORDERED: PERI PO (09:36)
[2017-03-05] MEDS ORDERED: MAGN30S PO (09:36)
[2017-03-05] MEDS ORDERED: TYLE325T PO (09:37)
[2017-03-05] MEDS ORDERED: WALKER WHEELS/F1 MIS (09:41)
--- NOTE | 2017-03-05 12:51 | HHI.PR ---
Subjective Subjective Notes PTD: 8; HD: 7 Patient lying in bed. Sound asleep. No distress noted. Objective Vitals/I&O Vital Signs Date Time Temp Pulse Resp B/P (MAP) Pulse Ox O2 Delivery O2 Flow Rate FiO2 03/05/17 11:58 101.2 113 20 92/46 (61) 96 03/04/17 09:13 Room Air Labs Laboratory Tests Test 03/04/17 14:41 White Blood Count 6.1 Red Blood Count 4.29 Hemoglobin 10.8 Hematocrit 31.5 Mean Corpuscular Volume 73.5 Mean Corpuscular Hemoglobin 25.1 Mean Corpuscular Hemoglobin Concent 34.1 Red Cell Distribution Width 25.0 Platelet Count 106 Mean Platelet Volume 8.4 Neutrophils (%) (Auto) 81.6 Lymphocytes (%) (Auto) 7.4 Monocytes (%) (Auto) 9.8 Eosinophils (%) (Auto) 0.7 Basophils (%) (Auto) 0.5 Neutrophils # (Auto) 5.0 Lymphocytes # (Auto) 0.5 Monocytes # (Auto) 0.6 Eosinophils # (Auto) 0.0 Basophils # (Auto) 0.0 CBC Comment AUTO DIFF Differential Comment AUTO DIFF CONFIRMED Platelet Estimate LOW Platelet Morphology Comment NORMAL Polychromasia 2.0 Tear Drop Cells 1+ Ovalocytes 1+ Blood Urea Nitrogen 3 Creatinine 0.69 Random Glucose 94 Calcium Level 8.0 Sodium Level 140 Potassium Level 3.2 Chloride Level 107 Carbon Dioxide Level 23.3 Anion Gap 10 Estimat Glomerular Filtration Rate 120 Narrative Exam GENERAL: This is a 51-year-old male lying in bed. No distress noted. SKIN: Warm and dry. HEAD: . Normocephalic. Left scalp/eye brow healing laceration. EMMA. EYES: LEFT eye with ecchymosis. ENT: No nasal bleeding or discharge. Mucous membranes pink and moist. NECK: Trachea midline. No JVD. CARDIOVASCULAR: Regular rate and rhythm. RESPIRATORY: No accessory muscle use. Lungs are clear to auscultation. Breath sounds equal bilaterally. No distress or dyspnea. GASTROINTESTINAL: BS + x 4 quads. Abdomen soft, non-tender, nondistended. MUSCULOSKELETAL: Extremities without cyanosis, or edema. + peripheral pulses x 4 extremities. Warm with good capillary refill and sensation. MAEW. NEUROLOGICAL: Asleep. A/P Problem List: (1) Nasal bone fracture ICD Codes: S02.2XXA - Fracture of nasal bones, initial encounter for closed fracture Status: Acute (2) Hemorrhagic shock ICD Codes: R57.8 - Other shock Status: Acute (3) Fall ICD Codes: W19.XXXA - Unspecified fall, initial encounter Status: Acute (4) Forehead laceration ICD Codes: S01.81XA - Laceration without foreign body of other part of head, initial encounter Status: Acute (5) Alcohol intoxication ICD Codes: F10.929 - Alcohol use, unspecified with intoxication, unspecified Status: Chronic (6) Alcohol dependence in controlled environment ICD Codes: F10.20 - Alcohol dependence, uncomplicated Status: Chronic (7) Dependent personality disorder ICD Codes: F60.7 - Dependent personality disorder Status: Chronic Assessment and Plan TEJON: This is a 51-year-old male who sustained a fall at home. He cut his head, but did not seek medical care. He fell again at home the day after and could not control the bleeding. He is on Eliquis at home. EtOH 222. PRBC 2 given INJURIES: LEFT frontal scalp lac (dede/sutures) Nasal bone fx (displaced) Incidental right hepatic lobe nodule, thyroid nodule PMHx: ETOH abuse (Drinks six 24oz cans of beer QD), DVT (on Eliquis). Chron's. Procedures: Consults: OMFS. Case management Diet: Regular diet. Tolerating po diet. Encourage good po intake with each meal. One beer with each meal tray, however patient will not drink it, as he does not like the taste of it. Pulmonary: Encourage good pulmonary toileting. IS at bedside and pt encouraged to use. Rationale for use explained to patient, and verbalized understanding. Still awaiting a.m. labs to be drawn and resulted. PAIN Management: [place] 5-10mg q 4h. Dilaudid 0.5mg q 3h Behavior: Seroquel 150 q 8h, Valproic acid 500 BID. Geodon 10 mg BID PRN. ETOH: LIBRIUM TID. Ativan 1 mg q 4h. Activity: OOB. PT ordered. GI prophylaxis: Pepcid 20 mg BID. Bowel regimen: Morenita-colace. MOM. PRN Lactulose. Senna PRN. LBM: 03/05. DVT prophylaxis: Mechanical VTE with SCDs. Chemical management - Lovenox on hold at this point due to drop in platelets. DC Planning: Case management consulted for assistance with final discharge disposition. Emotional support provided to patient and family at bedside and plan of care discussed. Discussed with RN at bedside. Discussed pt condition and plan of care with collaborating trauma surgeon. Patient is hemodynamically stable and being managed on the med/surg floor. The trauma team will round each day, and evaluate plan of care on a daily basis. LEFT frontal scalp lac (dede/sutures) Sutures removed Monitor site closely Post traumatic blood lass anemia 03/04: H&H = 10.8 / 31.5 03/03: H&H = 8.9 / 28.0 improved 03/02: H&H = 6.7 / 20.5 low 03/02: Transfuse PRBC x 2 STAT Nasal bone fx F/U outpatient ETOH abuse 1 beer with each meal tray Monitor for S&S of DT's Librium 25 mg TID Geodon 10 mg BID PRN Seroquel 150 mg q 8h. Valproic acid 500 mg BID. Ativan 1 mg q 4 h PRN agitation or DTs. Placed in bed close to the nursing station for close monitoring. Fevers T = 101.5, however pt is under 2 blankets WBC = 6.1 No other signs or symptoms of infection. ? DT's / agitation Could be medication induced Monitor closely Problem Qualifiers (1) Nasal bone fracture: Qualified Codes: S02.2XXA - Fracture of nasal bones, initial encounter for closed fracture (2) Fall: Qualified Codes: W19.XXXA - Unspecified fall, initial encounter (3) Forehead laceration: Qualified Codes: S01.81XA - Laceration without foreign body of other part of head, initial encounter (4) Alcohol intoxication: Qualified Codes: F10.921 - Alcohol use, unspecified with intoxication delirium Fager-Marino,Shira F DESIGN [employer]INTER [employer] Mar 05, 2017 12:51
[2017-03-05] MEDS ORDERED: POTASSIUM CHLORIDE 20 MEQ CONTROLLED RELEASE TAB PO ONE (13:00)
[2017-03-06] MEDS: LORazepam 2 MG/ML VIAL IV PUSH PRN (00:35)
[2017-03-06] MEDS: CHLORHEXIDINE GLUCONATE 2 % 1 PACK (2 CLOTHS) TOP SCH (03:43)
[2017-03-06 04:20] VITALS: BP 95/51; PULSE 113; RESP 18; TEMP 100.8; O2SAT 94
[2017-03-06] MEDS: QUEtiapine FUMARATE 100 MG TAB PO SCH ×3 (06:53→20:55)
[2017-03-06 08:00] VITALS: BP 92/48; PULSE 94; RESP 32; TEMP 97.9; O2SAT 94
--- NOTE | 2017-03-06 08:29 | HHI.PR ---
Neuropsych Behavior Behavior: Mild: Impulsive/Agitated Cognitive Cognitive: Intact: Cognitive, Attention/Concentration, Confused/Orientation, Insight/Awareness, Judgement/Problem-Solving, Memory Psychosocial Psychosocial: Severe: Psychosocial, Family/Other Adjustment, Realistic Expectation, Unable to Asses: Self-Esteem/Confidence Progress Notes/Response to Tx Premorbid psychological status Premorbid Cognitive, Emotional and Behavioral Status: Unstable. The patient has high school years of education but on SSDI for some physical reason. The patient has prior psychiatric difficulties, as described above. Substance abuse history is significant and directly contributed to his present situation. Behavioral Reactions of Patient and Family/Support System: Unstable. The patients family is not present. Emotional/Behavioral Status of Patient and Family/Support System: Unstable. Pertinent issues, if appropriate to this patients clinical care, are described in detail above. Maximizing acute care outcome It is recommended that the patient be monitored for emergent behavioral impulsivity as the medical condition evolves. His ongoing alcohol dependence will be a challenge and will need pharmacological management. At this point in the recovery process, the patient does not have basic cognitive capacity as the patient is not able to understand a situation and its likely consequences, and he is not able to manipulate information rationally albeit marginally rationally. Issues concerning capacity have changed given his current neurobehavioral situation. Cognitive capacity will be assessed throughout the recovery process. Anticipated Problems The greatest anticipated problem will be his ongoing alcohol dependence and his dependent personality disorder making it difficult to determine an accurate history. Ongoing areas of concern will include behavioral impulsivity, lack of insight and judgment, which is expected to improve with time and treatment. Presently, the patient is alert, oriented and following commands, although his cognition is presently attenuated by resolving alcohol intoxication. Treatment Plan This clinician will continue to follow with you throughout the course of this patients acute care treatment, and I will be available to meet with the patient s family/support system to facilitate their understanding and the ongoing care of their family member. The goals of neuropsychological intervention shall be both educational and supportive to the family/support system as is deemed clinically appropriate. Disinhibition Score: 29.68 Aggression Score: 17.50 Lability Score: 23.24 Agitated Behavior Total Score: 25 Impression This is a 51 year old man with longstanding history of alcohol dependence and current alcohol intoxication who presents to the [facility] with multiple fall exacerbated by blood thinning medications, who has been agitated/restless since his admission. In addition to the [place] I disorders, he does report sufficient symptoms consistent with an [place] II dependent personality disorder. Diagnosis: (1) Alcohol dependence in controlled environment Status: Chronic (2) Alcohol intoxication Status: Chronic (3) Dependent personality disorder Status: Chronic Progress Note Narrative Ongoing follow-up of patient seen during daily trauma rounds. This is day 8 post injury. The patient remains somewhat agitated/restless with noted ABS score of 25, and noting that he required Ativan last night at 0035. His agitation/restlessness at this point appears premorbid, and not related to his several medical conditions, including the DTs which were successfully treated, and as such he is considered at baseline. He is being discharged today. Problem Qualifiers (1) Alcohol intoxication: Qualified Codes: F10.921 - Alcohol use, unspecified with intoxication delirium Jose Luis Jane PhD Mar 06, 2017 8:29 am
[2017-03-06] MEDS: chlordiazePOXIDE 25 MG CAP PO SCH ×3 (08:50→18:00)
[2017-03-06] MEDS: levETIRAcetam 500 MG TAB PO SCH ×2 (08:50→20:54)
[2017-03-06] MEDS: FAMOTIDINE 20 MG TAB PO SCH ×2 (08:50→20:53)
[2017-03-06] MEDS: DOCUSATE SODIUM 50 MG/SENNA 8.6 MG TAB PO SCH ×2 (08:50→20:54)
[2017-03-06] MEDS: VALPROIC ACID 250 MG CAP PO SCH ×2 (08:51→20:54)
--- NOTE | 2017-03-06 11:32 | PD.NP.DS ---
Discharge Summary Reason for Referral: The patient is a 51 year old right handed male status post traumatic injury secondary to a fall and complicated by blood thinning medications and chronic ETOH abuse on 02/27/2017. On admission, he was GCS of 15 with ETOH intoxication. This patient reported consuming 6+ 24 oz cans of beer per day, with longstanding ETOH dependence, reported in and out of sobriety programs. He reported a history of seizure disorder related to his longstanding chronic alcohol dependence (on Keppra and Lamictal) . He is on SSDI for multiple physical issues, , prior arrest for public intoxication vs. stalking. He is referred for baseline neurobehavioral status examination per trauma protocol to assess cognitive, behavioral and emotional aspects of the injury and to provide treatment recommendations. His agitation/restlessness 2T DTs were successfully treated during his stay, and he was discharged home. Past Medical History: Please refer to the patient's history and physical for information concerning the patient's past medical, surgical, and psychiatric histories. Education/Learning Hx: The patient completed high school years of education. There is no report of learning difficulties, grade repetitions or behavioral difficulties. The patient had a solid work history at some point, but has been on SSDI. The patient is . The patient lives in [place], [place]. Premorbid Cognitive, Emotional and Behavioral Status: Unstable. The patient has high school years of education but on SSDI for some physical reason. The patient has prior psychiatric difficulties, as described above. Substance abuse history is significant and directly contributed to his present situation. Behavioral Reactions of Patient and Family/Support System: Unstable. The patients family is not present. Emotional/Behavioral Status of Patient and Family/Support System: Unstable. Pertinent issues, if appropriate to this patients clinical care, are described in detail above. Treatment Interventions: During the course of their acute care stay, this patient and their family/ support system were provided information concerning the neuropsychological aspects of the injury, education regarding course of recovery, and psychological support in the form of counseling with the person served and the family/support system as documented in the neuropsychology service progress notes, as deemed clinically appropriate. Facilitation of monitoring and treatment of his alcohol withdrawal condition was managed throughout his stay. Current, Cognitive, Emotional and Behavioral Status: Tenuous. This patient has multiple premorbid issues, that include chronic alcohol dependence and dependent personality disorder. Impression at Discharge: The cognitive and behavioral status of this patient meets criteria for Alcohol dependence and Dependent Personality disorder. The above listed diagnoses are supported by the following clinical criteria: Alcohol Use Disorder. This patient has a longstanding history of alcohol dependence characterized by daily use exceeding recommended amounts, tolerance and consumption that has resulted in numerous health and social difficulties. Status of Family/Support System Adjustment: Deferred. The patient does not have family/support system present. Post Acute Recommendations: It is recommended that this patient no longer consume alcohol as his current pattern of use is dangerous for his health. This patient now has requisite cognitive capacity to make decisions and as such he will need to make personal decisions concerning his sobriety. Thank you for the opportunity to assist in this patients care. Jose Luis Jane, Ph.D., ABPP Board Certified in Clinical Neuropsychology [place] [employer] of Professional Psychology [place] Licensed Psychologist #[id number] Jose Luis Jane PhD Mar 06, 2017 11:32 am
[2017-03-06 11:45] VITALS: BP_SYST 107; BP_SYST 122; BP_DIAS 59; BP_DIAS 61; PULSE 105; PULSE 58; RESP 20; TEMP 96.9; TEMP 98.2; O2SAT 93; O2SAT 97
--- NOTE | 2017-03-06 12:42 | RADRPT ---
EXAM DATE/TIME: 03/06/2017 12:08 [facility] COMPARISON: CHEST SINGLE AP, February 26, 2017, 16:33. INDICATIONS : Shortness of breath, cough, and chest pain. Fall 1 week ago. MEDICAL HISTORY : Chrons. Liver disease. SURGICAL HISTORY : Cholecystectomy. ENCOUNTER: Subsequent ACUITY: 1 week PAIN SCORE: 5/10 LOCATION: Bilateral chest FINDINGS: A single view of the chest demonstrates the lungs to be symmetrically aerated without evidence of mas s, infiltrate or effusion. The cardiomediastinal contours are unremarkable. Osseous structures are intact. CONCLUSION: The lungs are clear. No pneumothorax seen. Abdirahman Tinoco MD on March 06, 2017 at 12:40 Board Certified Radiologist. This report was verified electronically.
--- NOTE | 2017-03-06 13:06 | HHI.FF ---
Face to Face Verification Diagnosis: (1) Forehead laceration (2) Nasal bone fracture (3) Fall Physical Therapy Order: Evaluate and Treat, Improve ambulation, Strength and gait training Home Health Nursing Order: Nursing assessment with vital signs I have seen patient Jasvir Hilario on 03/06/17. My clinical findings support the need for the requested home health care services because: Limited ability to care for self High risk of falls I certify that my clinical findings support that this patient is homebound because: Unsteady gait/balance Susie Victor Mar 06, 2017 13:05
--- NOTE | 2017-03-06 13:24 | HHI.DS ---
Discharge Summary Admission Date Feb 26, 2017 at 17:11 Discharge Date: Mar 06, 2017 Admitting Diagnosis scalp laceration, anemia (1) Nasal bone fracture ICD Codes: S02.2XXA - Fracture of nasal bones, initial encounter for closed fracture Status: Acute (2) Hemorrhagic shock ICD Codes: R57.8 - Other shock Status: Acute (3) Fall ICD Codes: W19.XXXA - Unspecified fall, initial encounter Status: Acute (4) Forehead laceration ICD Codes: S01.81XA - Laceration without foreign body of other part of head, initial encounter Status: Acute (5) Alcohol intoxication ICD Codes: F10.929 - Alcohol use, unspecified with intoxication, unspecified Status: Chronic (6) Alcohol dependence in controlled environment ICD Codes: F10.20 - Alcohol dependence, uncomplicated Status: Chronic (7) Dependent personality disorder ICD Codes: F60.7 - Dependent personality disorder Status: Chronic Brief History S/P Trauma: Fall CBC/BMP: 03/04/17 1441 03/04/17 1441 Significant Findings Laboratory Tests Test 03/04/17 14:41 Red Blood Count 4.29 MIL/MM3 (4.50-5.90) Hemoglobin 10.8 GM/DL (13.0-17.0) Hematocrit 31.5 % (39.0-51.0) Mean Corpuscular Volume 73.5 FL (80.0-100.0) Mean Corpuscular Hemoglobin 25.1 PG (27.0-34.0) Red Cell Distribution Width 25.0 % (11.6-17.2) Platelet Count 106 TH/MM3 (150-450) Neutrophils (%) (Auto) 81.6 % (16.0-70.0) Lymphocytes (%) (Auto) 7.4 % (9.0-44.0) Monocytes (%) (Auto) 9.8 % (0.0-8.0) Lymphocytes # (Auto) 0.5 TH/MM3 (1.0-4.8) Platelet Estimate LOW (NORMAL) Polychromasia 2.0 % (0.0-1.9) Tear Drop Cells 1+ (NORMAL) Ovalocytes 1+ (NORMAL) Blood Urea Nitrogen 3 MG/DL (7-18) Calcium Level 8.0 MG/DL (8.5-10.1) Potassium Level 3.2 MEQ/L (3.5-5.1) Imaging Last Impressions Chest X-Ray 03/06/17 0000 Signed Impressions: Service Date/Time: Monday, March 06, 2017 12:08 - CONCLUSION: The lungs are clear. No pneumothorax seen. Abdirahman Tinoco MD Shoulder X-Ray 03/02/17 0000 Signed Impressions: Service Date/Time: February 16:07 - CONCLUSION: Negative exam. Harjinder Kirkland MD Pelvis X-Ray 02/26/17 1639 Signed Impressions: Service Date/Time: Sunday, February 26, 2017 16:33 - CONCLUSION: Unremarkable examination of the pelvis. Mani Starkey MD Maxillofacial CT 02/26/17 1639 Signed Impressions: Service Date/Time: Sunday, February 26, 2017 16:49 - CONCLUSION: 1. Minimally displaced nasal bone fracture. Left periorbital soft tissue swelling. Globes intact. Mani Starkey MD Head CT 02/26/17 1639 Signed Impressions: Service Date/Time: Sunday, February 26, 2017 16:49 - CONCLUSION: 1. No acute intracranial abnormality. Left frontal scalp hematoma and laceration. Mani Starkey MD Chest CT 02/26/17 1639 Signed Impressions: Service Date/Time: Sunday, February 26, 2017 16:55 - CONCLUSION: 1. Negative for acute traumatic injury within the thorax. Subacute healing right anterior sixth rib fracture. Mani Starkey MD Cervical Spine CT 02/26/17 1639 Signed Impressions: Service Date/Time: Sunday, February 26, 2017 16:49 - CONCLUSION: 1. No acute fracture. Partial fusion across C4-5 and C6-7. 2. 1.5 cm right thyroid nodule. Mani Starkey MD Abdomen/Pelvis CT 02/26/17 1639 Signed Impressions: Service Date/Time: Sunday, February 26, 2017 16:55 - CONCLUSION: 1. 2.5 cm nodule in right hepatic lobe. This could be evaluated with MRI on a nonemergent basis. There is likely prior cross-sectional imaging given the postsurgical changes within the abdomen. 2. Negative for acute traumatic injury within the abdomen and pelvis. 3. Mural thickening in the right colon most characteristic of a mild colitis. 4. Right femoral venous line present with some air in the right external iliac vein. Mani Starkey MD PE at Discharge GENERAL: 51-year-old disheveled male lying in bed eating breakfast. SKIN: Warm and dry. HEAD: Normocephalic. Left scalp/eye brow healing laceration. EYES: LEFT eye ecchymosis noted. PERRL CARDIOVASCULAR: Regular rate and rhythm. RESPIRATORY: No accessory muscle use. Lungs are clear to auscultation. Breath sounds equal bilaterally. GASTROINTESTINAL: Abdomen soft, non-tender, nondistended. + BS MUSCULOSKELETAL: Extremities without cyanosis, or edema. + perfused. MAEW. NEUROLOGICAL: Awake and alert. Normal speech. Hospital Course [place]: Fell at home and cut his head, but did not seek medical care initially. Fell again at home the day after and could not control the bleeding. On Eliquis at home. ETOH= 222. INJURIES: LEFT frontal scalp lac Nasal bone fx (displaced) LEFT frontal scalp lac Sutures removed Keep open to air Cleanse daily with soap and water Nasal bone fx F/U outpatient with [facility] Pain control ETOH abuse Counselled to quit Abstain from alcohol use Fevers WBC = 6.1 No other signs or symptoms of infection. ? DT's / agitation / ? sinus' Could be medication induced CXR today shows clear lungs F/U with PCP in 1 week. Hold Eliquis. Plan of care discussed with patient at bedside. Patient is clear from trauma surgery standpoint to safely discharge home with home health care. Rolling walker ordered Pt Condition on Discharge: Stable Discharge Disposition: Disch w/ Home Health Serv Discharge Instructions DIET: Follow Instructions for: As Tolerated, No Restrictions Activities you can perform: Weight Bearing as Amy, See Additionl Instruction Activities to Avoid: Driving for 24 hrs, Concussion Sports, Contact Sports, Strenuous Activity Susie Victor Mar 06, 2017 13:24
[2017-03-06 16:00] VITALS: BP 102/53; PULSE 105; RESP 21; TEMP 99.5; O2SAT 97
[2017-03-06 20:50] VITALS: BP 100/56; PULSE 92; RESP 18; TEMP 100.5; O2SAT 97
[2017-03-06] MEDS: ACETAMINOPHEN/HYDROcodone 325 MG/10 MG TAB PO PRN (20:54)
[2017-03-07] VITALS (7 sets, daily range): BP systolic 94–127; BP diastolic 55–66; PULSE 94–125; RESP 16–18; TEMP 96.4–99.1; O2SAT 94–97
[2017-03-07] MEDS: CHLORHEXIDINE GLUCONATE 2 % 1 PACK (2 CLOTHS) TOP SCH (04:00)
[2017-03-07] MEDS: QUEtiapine FUMARATE 100 MG TAB PO SCH ×3 (06:16→22:08)
[2017-03-07] MEDS: ACETAMINOPHEN/HYDROcodone 325 MG/5 MG TAB PO PRN ×2 (06:21→12:23)
[2017-03-07] MEDS: DOCUSATE SODIUM 50 MG/SENNA 8.6 MG TAB PO SCH ×2 (09:00→20:00)
[2017-03-07] MEDS: levETIRAcetam 500 MG TAB PO SCH ×2 (09:44→20:04)
[2017-03-07] MEDS: VALPROIC ACID 250 MG CAP PO SCH ×2 (09:45→20:05)
[2017-03-07] MEDS: chlordiazePOXIDE 25 MG CAP PO SCH ×3 (09:45→17:09)
[2017-03-07] MEDS: FAMOTIDINE 20 MG TAB PO SCH ×2 (09:46→20:04)
[2017-03-07] MEDS: ONDANSETRON HCL 4 MG/2 ML VIAL IV PUSH PRN (12:24)
--- NOTE | 2017-03-07 12:51 | HHI.PR ---
Subjective Subjective Notes Patient did not DC yesterday d/t social issues Today patient having tachycardia with bigeminy beats Reports he has been having episodes of his heart racing at home and states he has associated SOB and chest tightness during the episodes Denies SOB/CP today Objective Vitals/I&O Vital Signs Date Time Temp Pulse Resp B/P (MAP) Pulse Ox O2 Delivery O2 Flow Rate FiO2 03/07/17 12:21 99.1 114 17 104/58 (73) 94 03/04/17 09:13 Room Air Radiology Last Impressions Chest X-Ray 03/06/17 0000 Signed Impressions: Service Date/Time: Monday, March 06, 2017 12:08 - CONCLUSION: The lungs are clear. No pneumothorax seen. Abdirahman Tinoco MD Shoulder X-Ray 03/02/17 0000 Signed Impressions: Service Date/Time: February 16:07 - CONCLUSION: Negative exam. Harjinder Kirkland MD Pelvis X-Ray 02/26/17 1639 Signed Impressions: Service Date/Time: Sunday, February 26, 2017 16:33 - CONCLUSION: Unremarkable examination of the pelvis. Mani Starkey MD Maxillofacial CT 02/26/17 1639 Signed Impressions: Service Date/Time: Sunday, February 26, 2017 16:49 - CONCLUSION: 1. Minimally displaced nasal bone fracture. Left periorbital soft tissue swelling. Globes intact. Mani Starkey MD Head CT 02/26/17 1639 Signed Impressions: Service Date/Time: Sunday, February 26, 2017 16:49 - CONCLUSION: 1. No acute intracranial abnormality. Left frontal scalp hematoma and laceration. Mani Starkey MD Chest CT 02/26/17 1639 Signed Impressions: Service Date/Time: Sunday, February 26, 2017 16:55 - CONCLUSION: 1. Negative for acute traumatic injury within the thorax. Subacute healing right anterior sixth rib fracture. Mani Starkey MD Cervical Spine CT 02/26/17 1639 Signed Impressions: Service Date/Time: Sunday, February 26, 2017 16:49 - CONCLUSION: 1. No acute fracture. Partial fusion across C4-5 and C6-7. 2. 1.5 cm right thyroid nodule. Mani Starkey MD Abdomen/Pelvis CT 02/26/17 2719 Signed Impressions: Service Date/Time: Sunday, February 26, 2017 16:55 - CONCLUSION: 1. 2.5 cm nodule in right hepatic lobe. This could be evaluated with MRI on a nonemergent basis. There is likely prior cross-sectional imaging given the postsurgical changes within the abdomen. 2. Negative for acute traumatic injury within the abdomen and pelvis. 3. Mural thickening in the right colon most characteristic of a mild colitis. 4. Right femoral venous line present with some air in the right external iliac vein. Mani Starkey MD Disinhibition Score: 29.68 Aggression Score: 17.50 Lability Score: 23.24 Agitated Behavior Total Score: 25 Narrative Exam GENERAL: 51-year-old disheveled male OOB in chair. SKIN: Warm and dry. HEAD: Normocephalic. Left scalp/eye brow healing laceration. EYES: LEFT eye ecchymosis noted. PERRL CARDIOVASCULAR: Sinus tachycardia, HR 115. RESPIRATORY: No accessory muscle use. Lungs are clear and diminished to auscultation. Breath sounds equal bilaterally. GASTROINTESTINAL: Abdomen soft, non-tender, nondistended. + BS MUSCULOSKELETAL: Extremities without cyanosis, or edema. + perfused. MAEW. NEUROLOGICAL: Lethargic, arouses to voice. Normal speech. A/P Problem List: (1) Nasal bone fracture ICD Codes: S02.2XXA - Fracture of nasal bones, initial encounter for closed fracture Status: Acute (2) Hemorrhagic shock ICD Codes: R57.8 - Other shock Status: Acute (3) Fall ICD Codes: W19.XXXA - Unspecified fall, initial encounter Status: Acute (4) Forehead laceration ICD Codes: S01.81XA - Laceration without foreign body of other part of head, initial encounter Status: Acute (5) Alcohol intoxication ICD Codes: F10.929 - Alcohol use, unspecified with intoxication, unspecified Status: Chronic (6) Alcohol dependence in controlled environment ICD Codes: F10.20 - Alcohol dependence, uncomplicated Status: Chronic (7) Dependent personality disorder ICD Codes: F60.7 - Dependent personality disorder Status: Chronic Discharge Planning [place]: Fell at home and cut his head, but did not seek medical care. Fell again at home the day after and could not control the bleeding. On Eliquis at home. ETOH= 222. INJURIES: LEFT frontal scalp lac Nasal bone fx (displaced) PMHx: ETOH abuse (Drinks six 24oz cans of beer QD), DVT (on Eliquis). Crohn's dx.. LEFT frontal scalp lac Sutures removed Keep open to air Cleanse daily with soap and water Nasal bone fx F/U outpatient with [facility] Pain control ETOH abuse Counselled to quit Abstain from alcohol use Fevers WBC = 6.1 No other signs or symptoms of infection. ? DT's / agitation / ? sinus' Could be medication induced CXR shows clear lungs Low grade temps Sinus arrhythmia child monitor shows ST with frequent bigeminy beats [address] with artifact Cardiology consulted Troponin pending No CP/SOB today Plan of care discussed with patient at bedside. Case management consulted to assist discharge planning. Patient may need short- term rehabilitation placement if unable to verify safe living arrangements. Problem Qualifiers (1) Nasal bone fracture: Qualified Codes: S02.2XXA - Fracture of nasal bones, initial encounter for closed fracture (2) Fall: Qualified Codes: W19.XXXA - Unspecified fall, initial encounter (3) Forehead laceration: Qualified Codes: S01.81XA - Laceration without foreign body of other part of head, initial encounter (4) Alcohol intoxication: Qualified Codes: F10.921 - Alcohol use, unspecified with intoxication delirium Susie Victor Mar 07, 2017 12:51
[2017-03-07] MEDS ORDERED: SODIUM CHLORID 0.9% 500 ML INJ 500 ML IV ONE (14:00)
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
--- NOTE | 2017-03-07 16:14 | ECHRPT ---
Indication: sinus tachycardia CONCLUSIONS Technically difficult study The left ventricular systolic function is normal with an estimated ejection fraction in the range of 55-60%. Left ventricular diastolic function parameters are normal. Acrcz-ar-ynas mitral valve regurgitation. There is mild tricuspid valve regurgitation. BP: / HR: Rhythm: MEASUREMENTS (Male / Female) Normal Values Technical Quality:Technically difficult study 2D ECHO LV Diastolic Diameter PLAX 5.2 cm 4.2 - 5.9 / 3.9 - 5.3 cm LV Systolic Diameter PLAX 4.1 cm IVS Diastolic Thickness 0.9 cm 0.6 - 1.0 / 0.6 - 0.9 cm LVPW Diastolic Thickness 1.3 cm 0.6 - 1.0 / 0.6 - 0.9 cm LV Relative Wall Thickness 0.4 RV Internal Dim ED PLAX 2.8 cm M-MODE Aortic Root Diameter MM 3.8 cm LA Systolic Diameter MM 2.8 cm LA Ao Ratio MM 0.7 AV Cusp Separation MM 2.4 cm DOPPLER Mitral E Point Velocity 68.1 cm/s Mitral A Point Velocity 61.7 cm/s Mitral E to A Ratio 1.1 LV E' Lateral Velocity 12.0 cm/s Mitral E to LV E' Lateral Ratio 5.7 LV E' Septal Velocity 11.5 cm/s Mitral E to LV E' Septal Ratio 5.9 FINDINGS LEFT VENTRICLE The left ventricular systolic function is normal with an estimated ejection fraction in the range of 55-60%. Normal left ventricular size. Grossly normal wall motion. Left ventricular diastolic function parameters are normal. RIGHT VENTRICLE Normal right ventricular size and systolic function. LEFT ATRIUM The left atrial size is normal. RIGHT ATRIUM The right atrial size is normal. ATRIAL SEPTUM Normal atrial septal thickness. AORTA The aortic root and proximal ascending aorta are normal in size on limited imaging. MITRAL VALVE Mwvbd-ov-zhsi mitral valve regurgitation. Structurally normal mitral valve. No mitral valve stenosis. AORTIC VALVE Probable trileaflet aortic valve. No aortic valve stenosis or regurgitation. TRICUSPID VALVE There is mild tricuspid valve regurgitation. Structurally normal tricuspid valve. No tricuspid valve stenosis. PULMONARY VALVE The pulmonary valve is not well visualized. VESSELS The inferior vena cava is normal in size. PERICARDIUM No pericardial effusion. Aung Bowling DO (Electronically Signed) Final Date:07 March 2017 16:13
[2017-03-07 17:06] LABS: MAGNESIUM 1.6 MG/DL (1.5-2.5); POTASSIUM 3.1 MEQ/L (3.5-5.1)
[2017-03-07] MEDS ORDERED: POTASSIUM CHLORIDE 20 MEQ PWD PACKET PO ONE (17:30)
--- NOTE | 2017-03-07 22:07 | EKG ---
Date Performed: 03/07/2017 Time Performed: 11:47:21 PTAGE: 51 years EKG: SINUS TACHYCARDIA ABNORMAL RHYTHM ECG PREVIOUS TRACING : 02/26/2017 20.51 Compared to prior tracing no significant change DOCTOR: Jona Negron Interpretating Date/Time 03/07/2017 22:06:57
[2017-03-08 00:23] VITALS: BP 108/57; PULSE 110; RESP 18; TEMP 98.4; O2SAT 97
[2017-03-08 04:10] VITALS: BP 94/51; PULSE 94; RESP 18; TEMP 98.9; O2SAT 97
[2017-03-08] MEDS: QUEtiapine FUMARATE 100 MG TAB PO SCH ×2 (06:00→14:00)
[2017-03-08 08:00] VITALS: BP 106/64; PULSE 93; RESP 18; TEMP 98; O2SAT 96
[2017-03-08] MEDS: DOCUSATE SODIUM 50 MG/SENNA 8.6 MG TAB PO SCH (09:00)
[2017-03-08] MEDS: levETIRAcetam 500 MG TAB PO SCH (09:27)
[2017-03-08] MEDS: VALPROIC ACID 250 MG CAP PO SCH (09:27)
[2017-03-08] MEDS: FAMOTIDINE 20 MG TAB PO SCH (09:28)
--- NOTE | 2017-03-08 11:23 | PD.CARD.PN ---
Subjective Subjective Remarks No events overnight More lethargic Heart rates better Objective Medications Current Medications Medications (Trade) Dose Ordered Sig/Julian Route Start Time Stop Time Status Last Admin (Zofran Inj) 4 mg Q6H PRN IV PUSH 02/26/17 18:00 03/07/17 12:24 (Morenita-Colace) 1 tab BID PO 02/26/17 21:00 03/06/17 08:50 (Milk Of Magnesia Liq) 30 ml Q12HR PRN PO 02/26/17 21:00 (Senokot) 17.2 mg Q12HR PRN PO 02/26/17 21:00 (Dulcolax Supp) 10 mg DAILY PRN RECTAL 02/26/17 18:00 (Lactulose Liq) 30 ml DAILY PRN PO 02/26/17 18:00 (Keppra) 1,000 mg Q12HR PO 02/26/17 21:00 03/08/17 09:27 ([place] 5-325 Mg) 1 tab Q4H PRN PO 02/27/17 07:45 03/07/17 12:23 ([place] 10-325 Mg) 1 tab Q4H PRN PO 02/27/17 07:45 03/06/17 20:54 (SEROquel) 150 mg Q8HR PO 02/28/17 14:00 03/07/17 22:08 (Pill Splitter) 1 ea UNSCH PRN OTHER 02/28/17 11:00 (Depakene) 500 mg Q12HR PO 03/02/17 21:00 03/08/17 09:27 (Pepcid) 20 mg BID PO 03/02/17 21:00 03/08/17 09:28 Vital Signs / I&O Vital Signs Date Time Temp Pulse Resp B/P (MAP) Pulse Ox O2 Delivery O2 Flow Rate FiO2 03/08/17 08:00 98.0 93 18 106/64 (78) 96 03/08/17 04:10 98.9 94 18 94/51 (65) 97 03/08/17 00:23 98.4 110 18 108/57 (74) 97 03/07/17 20:45 98.6 109 18 127/66 (86) 97 03/07/17 17:05 96.4 107 16 120/58 (78) 94 03/07/17 12:21 99.1 114 17 104/58 (17) 94 I/O 03/07/17 03/07/17 03/07/17 03/08/17 03/08/17 03/08/17 07:00 15:00 23:00 07:00 15:00 23:00 Intake Total 240 ml 500 ml 240 ml 240 ml Balance 240 ml 500 ml 240 ml 240 ml Intake Oral 240 ml 240 ml 240 ml IV Total 500 ml # Voids 1 2 2 # Bowel Movements 0 0 1 Physical Exam GENERAL: Lethargic SKIN: Warm and dry. HEAD: Atraumatic. Normocephalic. EYES: Pupils equal and round. No scleral icterus. No injection or drainage. Laceration over eye ENT: No nasal bleeding or discharge. Mucous membranes pink and moist. NECK: Trachea midline. No JVD. CARDIOVASCULAR: Regular rate and rhythm. RESPIRATORY: No accessory muscle use. Clear to auscultation. Breath sounds equal bilaterally. GASTROINTESTINAL: Abdomen soft, non-tender, nondistended. Hepatic and splenic margins not palpable. MUSCULOSKELETAL: Extremities without clubbing, cyanosis, or edema. No obvious deformities. NEUROLOGICAL: Awake and alert. No obvious cranial nerve deficits. Motor grossly within normal limits. Five out of 5 muscle strength in the arms and legs. Normal speech. PSYCHIATRIC: Appropriate mood and affect; insight and judgment normal. Laboratory Laboratory Tests Test 03/07/17 14:10 03/08/17 07:34 Blood Urea Nitrogen 8 MG/DL Creatinine 0.68 MG/DL Random Glucose 96 MG/DL Calcium Level 7.8 MG/DL Magnesium Level 1.6 MG/DL Sodium Level 143 MEQ/L Potassium Level 3.1 MEQ/L Chloride Level 108 MEQ/L Carbon Dioxide Level 27.0 MEQ/L Anion Gap 8 MEQ/L Estimat Glomerular Filtration Rate 122 ML/MIN Troponin I LESS THAN 0.02 NG/ML Assessment and Plan Problem List: (1) Sinus tachycardia ICD Codes: R00.0 - Tachycardia, unspecified (2) Alcohol dependence in controlled environment ICD Codes: F10.20 - Alcohol dependence, uncomplicated Status: Chronic (3) Nasal bone fracture ICD Codes: S02.2XXA - Fracture of nasal bones, initial encounter for closed fracture Status: Acute (4) Forehead laceration ICD Codes: S01.81XA - Laceration without foreign body of other part of head, initial encounter Status: Acute (5) Fall ICD Codes: W19.XXXA - Unspecified fall, initial encounter Status: Acute (6) Alcohol intoxication ICD Codes: F10.929 - Alcohol use, unspecified with intoxication, unspecified Status: Chronic (7) Hemorrhagic shock ICD Codes: R57.8 - Other shock Status: Acute Assessment and Plan 1. Sinus tachycardia, most likely due to underlying illness. Heart rates better after fluids No further cardio work up 2. Palpitations at home which may be due to SVT Unsure if sinus tachycardia, Aflutter, Afib or other arrhythmia Not a candidate for anticoagulation if Afib or Flutter 3. Alcohol cessation 4. Multiple falls with left frontal scalp laceration. Per trauma team 5. EF 55-60%, trace MR/TR 6. Will see PRN, call with questions Problem Qualifiers (1) Nasal bone fracture: Qualified Codes: S02.2XXA - Fracture of nasal bones, initial encounter for closed fracture (2) Forehead laceration: Qualified Codes: S01.81XA - Laceration without foreign body of other part of head, initial encounter (3) Fall: Qualified Codes: W19.XXXA - Unspecified fall, initial encounter (4) Alcohol intoxication: Qualified Codes: F10.921 - Alcohol use, unspecified with intoxication delirium Aung Bowling DO Mar 08, 2017 11:23
[2017-03-08 12:00] VITALS: BP 108/66; PULSE 86; RESP 18; TEMP 97.1; O2SAT 99
--- NOTE | 2017-03-08 12:15 | HHI.DS ---
Discharge Summary Admission Date Feb 26, 2017 at 17:11 Discharge Date: Mar 08, 2017 Admitting Diagnosis scalp laceration, anemia (1) Nasal bone fracture ICD Codes: S02.2XXA - Fracture of nasal bones, initial encounter for closed fracture Status: Acute (2) Hemorrhagic shock ICD Codes: R57.8 - Other shock Status: Acute (3) Fall ICD Codes: W19.XXXA - Unspecified fall, initial encounter Status: Acute (4) Forehead laceration ICD Codes: S01.81XA - Laceration without foreign body of other part of head, initial encounter Status: Acute (5) Alcohol intoxication ICD Codes: F10.929 - Alcohol use, unspecified with intoxication, unspecified Status: Chronic (6) Alcohol dependence in controlled environment ICD Codes: F10.20 - Alcohol dependence, uncomplicated Status: Chronic (7) Dependent personality disorder ICD Codes: F60.7 - Dependent personality disorder Status: Chronic (8) Sinus tachycardia ICD Codes: R00.0 - Tachycardia, unspecified Brief History S/P Trauma: Fall CBC/BMP: 03/04/17 1441 03/07/17 1410 Significant Findings Laboratory Tests Test 03/07/17 14:10 03/08/17 07:34 Calcium Level 7.8 MG/DL (8.5-10.1) Potassium Level 3.1 MEQ/L (3.5-5.1) Chloride Level 108 MEQ/L (98-107) Troponin I LESS THAN 0.02 NG/ML Imaging Last Impressions Chest X-Ray 03/06/17 0000 Signed Impressions: Service Date/Time: Monday, March 06, 2017 12:08 - CONCLUSION: The lungs are clear. No pneumothorax seen. Abdirahman Tinoco MD Shoulder X-Ray 03/02/17 0000 Signed Impressions: Service Date/Time: February 16:07 - CONCLUSION: Negative exam. Harjinder Kirkland MD Pelvis X-Ray 02/26/17 1639 Signed Impressions: Service Date/Time: Sunday, February 26, 2017 16:33 - CONCLUSION: Unremarkable examination of the pelvis. Mani Starkey MD Maxillofacial CT 02/26/17 1639 Signed Impressions: Service Date/Time: Sunday, February 26, 2017 16:49 - CONCLUSION: 1. Minimally displaced nasal bone fracture. Left periorbital soft tissue swelling. Globes intact. Mani Starkey MD Head CT 02/26/17 1639 Signed Impressions: Service Date/Time: Sunday, February 26, 2017 16:49 - CONCLUSION: 1. No acute intracranial abnormality. Left frontal scalp hematoma and laceration. Mani Starkey MD Chest CT 02/26/17 1639 Signed Impressions: Service Date/Time: Sunday, February 26, 2017 16:55 - CONCLUSION: 1. Negative for acute traumatic injury within the thorax. Subacute healing right anterior sixth rib fracture. Mani Starkey MD Cervical Spine CT 02/26/17 163 Signed Impressions: Service Date/Time: Sunday, February 26, 2017 16:49 - CONCLUSION: 1. No acute fracture. Partial fusion across C4-5 and C6-7. 2. 1.5 cm right thyroid nodule. Mani Starkey MD Abdomen/Pelvis CT 02/26/179 Signed Impressions: Service Date/Time: Sunday, February 26, 2017 16:55 - CONCLUSION: 1. 2.5 cm nodule in right hepatic lobe. This could be evaluated with MRI on a nonemergent basis. There is likely prior cross-sectional imaging given the postsurgical changes within the abdomen. 2. Negative for acute traumatic injury within the abdomen and pelvis. 3. Mural thickening in the right colon most characteristic of a mild colitis. 4. Right femoral venous line present with some air in the right external iliac vein. Mani Starkey MD PE at Discharge GENERAL: 51-year-old disheveled male lying in bed. SKIN: Warm and dry. HEAD: Normocephalic. Left scalp/eye brow healing laceration. EYES: LEFT eye ecchymosis noted. PERRL CARDIOVASCULAR: Regular rate and rhythm. RESPIRATORY: No accessory muscle use. Lungs are clear and diminished to auscultation. Breath sounds equal bilaterally. GASTROINTESTINAL: Abdomen soft, non-tender, nondistended. + BS MUSCULOSKELETAL: Extremities without cyanosis, or edema. + perfused. MAEW. NEUROLOGICAL: Lethargic, arouses to voice. Normal speech. Hospital Course [place]: Fell at home and cut his head, but did not seek medical care. Fell again at home the day after and could not control the bleeding. On Eliquis at home. ETOH= 222. INJURIES: LEFT frontal scalp lac Nasal bone fx (displaced) PMHx: ETOH abuse (Drinks six 24oz cans of beer QD), DVT (on Eliquis). Crohn's dx. LEFT frontal scalp lac Sutures removed Keep open to air Cleanse daily with soap and water Nasal bone fx F/U outpatient with [facility] Pain control ETOH abuse Counselled to quit Abstain from alcohol use Fevers No other signs or symptoms of infection. ? DT's / agitation / ? sinus' Could be medication induced CXR shows clear lungs Afebrile for 24 hours Sinus arrhythmia front desk monitor shows ST with frequent bigeminy beats [address] with artifact Cardiology consulted and cleared for discharge HR better after IVF Troponin neg Denies CP/SOB Follow-up with PCP in 1 week Plan of care discussed with patient at bedside. Case management consulted to assist discharge planning. Patient is clear from trauma surgery standpoint to safely discharge to SNF. Pt Condition on Discharge: Stable Discharge Disposition: Discharge to SNF Discharge Instructions DIET: Follow Instructions for: As Tolerated, No Restrictions Activities you can perform: Weight Bearing as Amy, See Additionl Instruction Activities to Avoid: Driving for 24 hrs, Concussion Sports, Contact Sports, Strenuous Activity Susie Victor Mar 08, 2017 12:15
[2017-03-08 12:44] LABS: AUTOMATED NEUTROPHIL # 2.7 TH/MM3 (1.8-7.7); EOSINOPHIL % 0.9 % (0.0-4.0); HEMATOCRIT 28.8 % (39.0-51.0); LYMPH % 21.2 % (9.0-44.0); LYMPHOCYTE # 0.9 TH/MM3 (1.0-4.8); MEAN CORPUSCULAR HEMOGLOBIN 23.3 PG (27.0-34.0); MEAN CORPUSCULAR HGB CONC 32.8 % (32.0-36.0); NEUT % 64.9 % (16.0-70.0); PLATELET COUNT 182 TH/MM3 (150-450); RED BLOOD COUNT 4.06 MIL/MM3 (4.50-5.90); RED CELL DISTRIBUTION WIDTH 25.5 % (11.6-17.2); WHITE BLOOD COUNT 4.1 TH/MM3 (4.0-11.0)
[2017-03-08 12:50] LABS: HEMO FLAGS AUTO DIFF
[2017-03-08 14:00] LABS: ACANTHOCYTES OCC (NORMAL); BANDS 32 % (0-6); NEUTROPHIL # MANUAL DIFF 3.7 TH/MM3 (1.8-7.7); POLYS (SEG NEUTROPHILS) 58 % (16-70); TARGET CELLS 1+ (NORMAL); WBC DIFF SAMPLE 100
[2017-03-08 14:01] LABS: KERATOCYTES OCC (NORMAL)
[2017-03-08 14:02] LABS: PLATELET ESTIMATE SMEAR NORMAL (NORMAL); PLATELET MORPHOLOGY NORMAL (NORMAL)
[2017-03-08 14:03] LABS: SCAN/DIFF FINAL DIFF MANUAL
[2017-03-08] MEDS ORDERED: QUET1TAB8 PO (14:43)
[2017-03-08] MEDS ORDERED: VALP250 PO (14:43)
[2017-03-08 16:00] VITALS: BP 103/65; PULSE 98; RESP 18; TEMP 96.9; O2SAT 98
== END 2017-03-08 17:37 | DRG 813 ==
LOC: NEPI 16:30 → NEDA 17:11 → EDBD 17:11 → N03A 18:40 → N06A 03-02 03:53
PROVIDERS: ADMIT Surgery Trauma Surgery; ATTEND Surgery Trauma Surgery
PROC: 30233N1 Transfusion of Nonautologous Red Blood Cells into Peripheral Vein, Percutaneous Approach (ICD-10-PCS; principal; 2017-02-26)
PROC: 06HM33Z Insertion of Infusion Device into Right Femoral Vein, Percutaneous Approach (ICD-10-PCS; 2017-02-26)
PROC: 0HQ1XZZ Repair Face Skin, External Approach (ICD-10-PCS; 2017-02-26)
DX: D68.32 Hemorrhagic disorder due to extrinsic circulating anticoagulants (principal); T79.4XXA Traumatic shock, initial encounter; F10.231 Alcohol dependence with withdrawal delirium; K50.90 Crohn's disease, unspecified, without complications; D64.9 Anemia, unspecified; S02.2XXA Fracture of nasal bones, initial encounter for closed fracture; S01.81XA Laceration without foreign body of other part of head, initial encounter; W19.XXXA Unspecified fall, initial encounter; Y93.9 Activity, unspecified; F10.229 Alcohol dependence with intoxication, unspecified; Y90.7 Blood alcohol level of 200-239 mg/100 ml; Z79.01 Long term (current) use of anticoagulants; K21.9 Gastro-esophageal reflux disease without esophagitis; F32.9 Major depressive disorder, single episode, unspecified; F41.9 Anxiety disorder, unspecified; R29.6 Repeated falls; Y92.009 Unspecified place in unspecified non-institutional (private) residence as the place of occurrence of the external cause; F60.7 Dependent personality disorder; E04.1 Nontoxic single thyroid nodule; Z86.718 Personal history of other venous thrombosis and embolism; S13.9XXA Sprain of joints and ligaments of unspecified parts of neck, initial encounter; T45.515A Adverse effect of anticoagulants, initial encounter; Z23 Encounter for immunization
CPT/HCPCS: 36430; 51702; 70450; 70486; 71010; 71260; 72125; 72170; 73030; 74177; 76937; 80048; 80053; 80307; 82435; 82550; 82565; 82947; 83735; 84100; 84132; 84155; 84295; 84484; 84520; 85007; 85025; 85027; 85610; 85730; 86850; 86900; 86901; 86920; 87641; 90471; 90686; 90715; 90732; 93005; 93306; 94150; 96374; 96375; 96376; J1170; J1630; J1650; J2060; J2405; J3010; J3411; J3480; J3486; J7030; J7040; J7050; P9016; Q2038; Q9967